=== PATIENT | male | born 1940 | race Caucasian/White ===

== ENCOUNTER 2022-05-06 16:01 | Outpatient (CLI) | payer MEDICARE, SELFPAY ==
[2022-05-06 14:04] LABS: Chloride* 103 mmol/L (96-114); Potassium* 3.8 mmol/L (3.6-5.1); Sodium* 137 mmol/L (135-149)
[2022-05-06 14:07] LABS: Blood Urea Nitrogen* 16 mg/dL (7-30); Carbon Dioxide* 23 mmol/L (20-32); Cholesterol* 175 mg/dL (90-199); Creatinine* 0.9 mg/dL (0.5-1.5); Estimated Glomerular Filt Rate 87 ml/min
[2022-05-06 14:08] LABS: Calcium* 9.3 mg/dL (8.4-10.6); Glucose* 103 mg/dL (60-115); HDL Cholesterol* 60 mg/dL (>=40); LDL Cholesterol Calculated 86 mg/dL (<100); Triglycerides* 145 mg/dL (40-149)
[2022-05-06 14:30] LABS: PSA Screen* 1.15 ng/mL (0.10-4.00)
== END 2022-05-06 16:02 | disposition home or self-care (01) ==
PROVIDERS: PCP Family Medicine; Visit Provider Family Medicine
DX: Z00.00 Encounter for general adult medical examination without abnormal findings (principal); E78.00 Pure hypercholesterolemia, unspecified; E78.5 Hyperlipidemia, unspecified; I10 Essential (primary) hypertension; Z12.5 Encounter for screening for malignant neoplasm of prostate
CPT/HCPCS: 80048; 80061; 84153

== ENCOUNTER 2022-05-20 10:41 | Outpatient (CLI) | payer MEDICARE, SELFPAY | END 2022-05-20 10:42 | disposition home or self-care (01) | LOC: INJ CL 10:41 | PROVIDERS: PCP Family Medicine; Visit Provider Family Medicine | DX: M54.16 Radiculopathy, lumbar region (principal); M51.36 Other intervertebral disc degeneration, lumbar region | CPT/HCPCS: 62323; J0702; Q9966 ==

== ENCOUNTER 2022-09-23 08:56 | Outpatient (CLI) | payer MEDICARE, SELFPAY | END 2022-09-23 08:57 | disposition home or self-care (01) | LOC: INJ CL 09:10 | PROVIDERS: PCP Family Medicine; Visit Provider Family Medicine | DX: M54.16 Radiculopathy, lumbar region (principal); M51.36 Other intervertebral disc degeneration, lumbar region | CPT/HCPCS: 62323; J0702; Q9966 ==

== ENCOUNTER 2022-10-28 09:17 | Outpatient (CLI) | payer OTHER, SELFPAY | END 2022-10-28 09:18 | disposition home or self-care (01) | LOC: INJ CL 09:18 | PROVIDERS: PCP Family Medicine; Visit Provider Family Medicine | DX: M54.16 Radiculopathy, lumbar region (principal); M51.36 Other intervertebral disc degeneration, lumbar region | CPT/HCPCS: 62323; J0702; Q9966 ==

== ENCOUNTER 2022-11-04 08:52 | Outpatient (CLI) | payer OTHER, SELFPAY | END 2022-11-04 08:53 | disposition home or self-care (01) | LOC: NFLDREF 11-05 22:26 | PROVIDERS: PCP Family Medicine; Referring Provider Family Medicine; Visit Provider Family Medicine | DX: D64.9 Anemia, unspecified (principal) | CPT/HCPCS: 82728; 83540; 83550 ==

== ENCOUNTER 2023-02-24 08:06 | Outpatient (RCR) | payer OTHER, SELFPAY ==
[2023-02-24] MEDS: REGADENOSON 0.4 MG/5 ML SYRINGE IVP (09:05)
[2023-02-24] MEDS: SODIUM CHLORIDE 0.9 % (FLUSH) 10 ML SYRINGE IVF (09:05)
[2023-02-24 10:28] VITALS: BP 158/72; PULSE 89
--- NOTE | 2023-02-24 11:00 | W.PM.STED ---
Stress Test Note Date Date Seen: 02/24/23 Date of test: 02/24/23 Providers Primary care provider: Rg Collins Stress test physician: Donna Garza Stress Test Note Stress test ordered: Lexiscamadou Indication for test: Dyspnea, history of stents with ASCVD Stress test medicine: Lexiscan Results discussion: Resting EKG: Sinus rhythm 60 beats per minute, some artifact. Low voltage AVF, flipped T-wave [address] segment changes. Resting blood pressure: 158/91 Stress test: Patient had a nonwalking Lexiscan protocol. With the regadenoson infusion, felt lightheaded but no chest pain. He had no concerning blood pressure changes, did have a maximal systolic blood pressure 158/72. No concerning EKG changes during the stress test. Await the imaging test results for full formal diagnostic. Impression: Subjectively negative, objectively negative EKG portion of this stress test. Follow up suggested: Patient will have post stressed nuclear images obtained, will discharge to home after that to await a full formal report which will be sent to his ordering provider.
== END 2023-03-05 23:59 | disposition home or self-care (01) ==
LOC: STRESS 08:06
PROVIDERS: PCP Family Medicine; Visit Provider Family Medicine
DX: R06.09 Other forms of dyspnea (principal); I47.1 Supraventricular tachycardia; I25.10 Atherosclerotic heart disease of native coronary artery without angina pectoris
CPT/HCPCS: 78452; 93016; 93017; A9500; J2785

== ENCOUNTER 2023-05-07 08:13 | Outpatient (CLI) | payer OTHER, SELFPAY | END 2023-05-07 08:14 | disposition home or self-care (01) | LOC: NFLDREF 05-08 08:44 | PROVIDERS: PCP Family Medicine; Referring Provider Family Medicine; Visit Provider Family Medicine | DX: E78.5 Hyperlipidemia, unspecified (principal); I10 Essential (primary) hypertension; I25.10 Atherosclerotic heart disease of native coronary artery without angina pectoris; D64.9 Anemia, unspecified; R30.0 Dysuria; Z12.5 Encounter for screening for malignant neoplasm of prostate | CPT/HCPCS: 80053; 80061; 84153; 87086; 87186 ==

== ENCOUNTER 2023-05-19 08:41 | Outpatient (CLI) | payer OTHER, SELFPAY | END 2023-05-19 08:42 | disposition home or self-care (01) | LOC: INJ CL 08:43 | PROVIDERS: PCP Family Medicine; Visit Provider Family Medicine | DX: M54.16 Radiculopathy, lumbar region (principal); M51.36 Other intervertebral disc degeneration, lumbar region | CPT/HCPCS: 62323; J1100; Q9966 ==

== ENCOUNTER 2023-06-02 08:16 | Outpatient (CLI) | payer OTHER, SELFPAY | END 2023-06-02 08:17 | disposition home or self-care (01) | LOC: NFLDREF 06-04 15:56 | PROVIDERS: PCP Family Medicine; Referring Provider Family Medicine; Visit Provider Family Medicine | DX: D64.9 Anemia, unspecified (principal); N39.0 Urinary tract infection, site not specified; R31.9 Hematuria, unspecified | CPT/HCPCS: 82728; 83540; 87086; 87186 ==

== ENCOUNTER 2023-06-11 08:14 | Outpatient (CLI) | payer MEDICARE, SELFPAY ==
[2023-06-11 08:47] LABS: Creatinine* 0.9 mg/dL (0.5-1.5); Estimated Glomerular Filt Rate 86 ml/min
--- NOTE | 2023-06-11 09:00 | CRLHL7_ITS ---
For Patients: As a result of the Century Cures Act, medical imaging exams and procedure reports are released immediately into your electronic medical record. You may view this report before your referring provider. If you have questions, please contact your health care provider. INDICATION: Hematuria. TECHNIQUE: CT abdomen and pelvis urogram without and with 100 cc Isovue 370 IV contrast. Contrast images were obtained in the nephrographic and delayed phases. COMPARISON: None. FINDINGS: KIDNEYS: The unenhanced images demonstrate no kidney or ureteral stones. The kidneys are normal in caliber and demonstrate normal uptake and excretion of IV contrast. No masses. The renal collecting systems and ureters are symmetrical, normal in caliber, and without evidence of mass or filling defect. URINARY BLADDER: There is a lobular filling defect arising from the superior bladder wall measuring 9 millimeters, series 8, image 83 and series 7, image 106. OTHER: Chronic nondisplaced bilateral sacral insufficiency fractures noted. Bilateral pars defects at L5 without spondylolisthesis. Chronic appearing deformity involving the inferior endplate of L2. Mild scarring within the left lung base. No pleural effusion. Dense calcification of the mitral annulus. Layering stones within the gallbladder. No biliary obstruction. Fatty liver. Normal pancreas. Spleen normal. No hiatal hernia. Severe sigmoid diverticulosis. No bowel obstruction. No free air or free fluid. No abscess. Atherosclerotic changes. Small umbilical hernia containing fat. No aortic aneurysm. Prostate calcifications. IMPRESSION: 1. Normal kidneys and ureters. 2. Lobular 5th filling defect arising from the superior bladder wall measuring 9 millimeters suspicious for mass. Cystoscopy recommended. 3. Cholelithiasis. Severe sigmoid diverticulosis. Please note that all CT scans at this facility use dose modulation, iterative reconstruction, and/or weight-based dosing when appropriate to reduce radiation dose to as low as reasonably achievable. Dictated by Maxwell Gil MD @ 06/11/2023 1:00:17 PM (Electronically Signed)
== END 2023-06-11 08:15 | disposition home or self-care (01) ==
LOC: CT 08:15
PROVIDERS: PCP Family Medicine; Visit Provider Family Medicine
DX: R31.9 Hematuria, unspecified (principal); K80.20 Calculus of gallbladder without cholecystitis without obstruction
CPT/HCPCS: 36415; 74178; 82565; Q9967

== ENCOUNTER 2023-07-30 09:26 | Outpatient (CLI) | payer MEDICARE, SELFPAY ==
--- OUTSIDE RECORDS SUMMARY | 2023-07-30 09:28 | XMS_ITS | Continuity of Care Document ---
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 Role Phone Melvin BERNAL, PhD, Gil[place] Unavailable Unavai lable Allergies, Adverse Reactions, Alerts Substance Reaction Status Criticality No Known Allergies Active No Inform ation Medications Medication Instructions Dosage Effective Dates (start - stop) Status Comments HYDROCHLOROTHIAZIDE (unknown strength) Not Available - Active ASPIRIN (unknown strength) Not Available - Active ATORVASTATIN CALCIUM (unknown strength) Not Available - Active CALCIUM (unknown strength) Not Available - Active CO Q-10 (unknown strength) Not Available - Active MAGNESIUM (unknown strength) Not Available - Active METOPROLOL SUCCINATE (unknown strength) Not Available - Active MONTELUKAST SODIUM (unknown strength) Not Available - Active MULTIVITAMINS (unknown strength) Not Available - Active NITROGLYCERIN PATCH (unknown strength) Not Available - Active OMEPRAZOLE (unknown strength) Not Available - Active NASACORT (unknown strength) Not Available - Active Procedures Procedure Date Physician Telephone Evaluation 5-10 Min Physician Telephone Evaluation 5-10 Min Office/Outpatient Visit,Est, Mod 2019 Office/Outpatient Visit,New, Mod 2019 Advance Directives Directive Yes / No Effective Date File Name No Information Encounters Encounter Description Practice Location Reason(s) For Visit Diagnoses Date Provider Providers Copied on Encounter [facility], [address], [facility] [place], [id number], tel:[phone] [facility] No Information 1 Melvin Schafer. [facility], [address], [place], [address], [place]. tel:[phone] Physician Telephone Evaluation 5-10 Min [facility], [address], [place], [id number], [place] tel:[phone] [facility] No Information 1 Melvin Schafer. [facility], [address], [place], [address], [place]. tel:[phone] Referring Provider: Rg Hess, [facility] [address] [place], [address]. tel:[phone] Physician Telephone Evaluation 5-10 Min [facility], [address], [facility] [place] [id number], [place] tel:[phone] [facility] No Information 1 Melvin Schafer. [facility], [address], [place], [address], [place]. tel:[phone] Referring Provider: Rg Hess, [facility] [address] [place], [address]. tel:[phone] Office/Outpat ient Visit,Est, Mod [facility], [address], [place], [place], [id number], [place] tel:[phone] [facility] Spinal stenosis, lumbar region with neurogenic claudication 0 Melvin Schafer. [facility], [address], [place], [address], [place]. tel:[phone] Referring Provider: Rg Hess, [facility] [address] [place], [address]. tel:[phone] Office/Outpat ient Visit,New, Mod [facility], [address], [place], [place], [id number], [place] tel:[phone] [facility] Spondylolisthe sis, lumbar regionOther spondylosis, lumbar region 0 Nick Louis. [facility], [address], [place], [place], [id number] , [place]. tel:[phone] Referring Provider: Rg Hess, [address], [address]. tel:[phone] Family History Family Member Type Diagnosis Age At Onset No Information Payers Payer name Insurance type Covered constitution party ID Authoriza tion(s) [employer] Medicare [facility] CI [id number] Social History Type Description Quantity Date Captured Comments Sex Male Smoking Status No Information Chief Complaint And Reason For Visit No Information Reason For Referral Reason For Referral No Information History Of Present Illness Encounter Date Complaint History Of Prese nt Illness No Information Functional Status Date Functional Assessmen t No Information Instructions Date Instruction Additional Infor mation No Information Assessments Type Assessment Date No Information Patient Care Teams Name Effective Dates (start - stop) Status Members No Information
--- NOTE | 2023-07-30 10:00 | CRLHL7_ITS ---
For Patients: As a result of the Century Cures Act, medical imaging exams and procedure reports are released immediately into your electronic medical record. You may view this report before your referring provider. If you have questions, please contact your health care provider. INDICATION: Gross hematuria TECHNIQUE: CT abdomen and pelvis urogram without and with 100 cc Isovue 370 IV contrast. Contrast images were obtained in the nephrographic and delayed phases. COMPARISON: 06/11/2023 FINDINGS: KIDNEYS: The unenhanced images demonstrate no kidney or ureteral stones. The kidneys are normal in caliber and demonstrate normal uptake and excretion of IV contrast. No masses. The renal collecting systems and ureters are symmetrical, normal in caliber, and without evidence of mass or filling defect. URINARY BLADDER: Lobular mass within the bladder superiorly measuring 1.4 cm. OTHER: Linear subsegmental atelectasis or scarring within the left lower lobe. Stable densities within the sacrum bilaterally related to old nondisplaced fracture. Pars defects at L5 without spondylolisthesis. Chronic densities within the L2 vertebral bodies. No vertebral body compression fracture. Chronic sigmoid diverticulosis. Layering densities within the gallbladder. Atherosclerotic changes. Normal pancreas. Spleen normal. Fatty liver. IMPRESSION: 1. Lobular bladder mass measuring 1.4 cm arising from the superior wall. Cystoscopy recommended. 2. Normal kidneys. 3. Cholelithiasis. Please note that all CT scans at this facility use dose modulation, iterative reconstruction, and/or weight-based dosing when appropriate to reduce radiation dose to as low as reasonably achievable. Dictated by Maxwell Gil MD @ 07/30/2023 12:09:00 PM (Electronically Signed)
[2023-07-30 10:01] LABS: Estimated Glomerular Filt Rate 76 ml/min
== END 2023-07-30 09:27 | disposition home or self-care (01) ==
LOC: CT 09:26
PROVIDERS: PCP Family Medicine; Visit Provider Urology
DX: R31.0 Gross hematuria (principal); N32.9 Bladder disorder, unspecified; K80.20 Calculus of gallbladder without cholecystitis without obstruction
CPT/HCPCS: 36415; 74178; 82565; Q9967

== ENCOUNTER 2023-10-13 09:09 | Outpatient (CLI) | payer MEDICARE, SELFPAY | END 2023-10-13 09:10 | disposition home or self-care (01) | LOC: INJ CL 09:09 | PROVIDERS: PCP Family Medicine; Visit Provider Family Medicine | DX: M54.16 Radiculopathy, lumbar region (principal); M51.36 Other intervertebral disc degeneration, lumbar region | CPT/HCPCS: 62323; J0702; Q9966 ==

== ENCOUNTER 2024-01-05 07:39 | Outpatient (CLI) | payer OTHER, SELFPAY ==
--- OUTSIDE RECORDS SUMMARY | 2024-01-05 07:41 | XMS_ITS | Clinical Summary ---
Author Name Unknown Organization [facility] Address [place], [place] [address] Care Team Providers Care Tabulating Clerk Name Role Phone Rg Collins MD Primary Care Provider [phone] Allergies No known active allergies Medications Medication Sig Dispensed Refills Start Date End Date Status omeprazole (PRILOSEC) 20 mg capsule Take 20 mg by mouth once daily before a meal. Pt states does not take Active hydrochlorothiazid e (HCTZ) 25 mg tablet Take 25 mg by mouth once daily. Active simvastatin (ZOCOR) 40 mg tablet Take 40 mg by mouth at bedtime. Pt states he does not take this Active coQ10, ubiquinol, 100 mg cap Take 1 capsule by mouth once daily. Active aspirin 81 mg tablet Take 81 mg by mouth 2 times daily with meals. Active multivitamin (MVI) tablet Take 1 tablet by mouth once daily. Active montelukast (SINGULAIR) 10 mg tablet Take 10 mg by mouth at bedtime. Active metoprolol succinate 25 mg CSpX Take 25 mg by mouth two times daily. Active TRIAMCINOLONE ACETONIDE NASL Inhale into affected nostril(s) once daily if needed. Active magnesium oxide 250 mg magnesium tablet Take 250 mg by mouth once daily. Active HYDROcodone-acetam inophen (5-325 mg/tablet)Indicati ons:Bladder mass Take 1 Tablet by mouth every 6 hours if needed for Pain. Max acetaminophen dose: 4000 mg in 24 hrs. 12 Tablet 09/08/2023 Active Active Problems No known active problems Encounters Date Type Department Care Team Description 12/22/2023 Telephone [facility] [address] [place] [address] Dylan Graves MD LUMBAR INJECTION ORDER 11/11/2023 3:20 PM CDT Office Visit [facility] [address] [facility] [place] [address] Dylan Graves MD Musculoskeletal Problem (Follow up back pain had a L5-S1 interlaminar epidural steroid injection on 10/13/23) 11/11/2023 Travel 11/05/2023 Telephone [facility] [address] [facility] [place] [address] Dylan Graves MD Questions (INJECTION ) 10/13/2023 10:00 AM SHIPPING AGENT Office Visit [facility] at [address] [phone] Dylan Graves MD Procedure (L5-S1 ILESI) from Last 3 Months Immunizations Name Administration Dates Next Due Influenza A (H1N1), Inactiva lakeshia (Age >=3 Years) 06/29/2009 Influenza, High-dose Inactivated 04/07/2017 Influenza, IIV4 06/21/2020,06/09/2019,06/29/2009 Pneumococcal Poly,23-Valent (Pneumovax) 12/01/2012,12/01/2012,05/22/2008 Pneumococcal conj 13-Valent (Prevnar 13) 04/26/2015 Td, Preservative Free (age > = 7 Years) 12/14/2017,12/14/2017,05/22/2008 Tdap 05/22/2008 Zoster (Shingrix-RZV, recombinant) 10/29,10/27/2018,08/13/2018,2017 Zoster (Zostavax-ZVL, live) 12/01/2012 Social History Tobacco Use Types Packs/Day Years Used Date Smoking Tobacco: Former Smokeless Tobacco: Never Alcohol Use Standard Drinks/Week Comments Yes 0 (1 standard drink = 0.6 oz pur e alcohol) socially Social Connections Answer Date Recorded Frequency of Communication with Friends and Fami ly Not on file 08/15/2021 Financial Resource Strain Answer Date R ecorded Difficulty of Paying Living Expenses Not on file 08/15/2021 Difficulty of Paying Living Expenses Not on file 08/15/2021 Sex and Gender Information Value Date Recorded Sex Assigned at Not on file Gender Identity Not on file Sexual Orientation Not on file Obstetrics History Last Filed Vital Signs Vital Sign Reading Time Taken Comments Blood Pressure 107/69 11/11/2023 3:23 PM CDT Pulse 69 11/11/2023 3:23 PM CDT Temperature 36.8 ??C (98.2 ??F) 11/11/2023 3:23 PM CD T Respiratory Rate 16 09/08/2023 2:05 PM SHIPPING AGENT Oxygen Saturation 97% 11/11/2023 3:23 PM CDT Inhaled Oxygen Concentration - - Weight 111.6 kg (246 lb) 09/08/2023 11:00 AM SHIPPING AGENT Height 172.7 cm (5' 8) 09/08/2023 11:00 AM SHIPPING AGENT Body Mass Index 37.4 09/08/2023 11:00 AM SHIPPING AGENT Plan of Treatment Upcoming Encounters Date Type Department Care Team (Late st Contact Info) Description 01/05/2024 8:20 AM CDT Office Visit [facility] at [facility] [address] [place] [address] Dylan Graves MD [address] [place] [address] Health Maintenance Due Date Last Done Comments Depression screening for age 12+ 1954 BMI (ht and wt on same day) for age 18+ 1960 Medicare Wellness for age 65+ 2007 COVID-19 vaccine series ( season) 2023 05/06/2022, 11/13/2021, 05/13/2021, Additional history exists Influenza for age 65+ 04/17/2024 06/21/2020 , 06/09/2019, 04/07/2017, Additional history exists Tetanus booster 12/15/2027 12/14/2017, 11/17, 05/22/2008, Additional history exists Tdap Completed 05/22/2008 Pneumococcal series for age 65+ Completed 04/26/2015, 12/01/2012, 12/01/2012, Additional history exists Zoster (shingles) series for age 50+ Completed 10/29/2018, 10/27/2018, 08/13/2018, Additional history exists Procedures Procedure Name Priority Date/Time Associated Diagnosis Comments AMB EPIDURAL STEROID INJECTION Routine 10/13/2023 12:00 AM SHIPPING AGENT Lumbar radiculopathy Spinal stenosis, lumbar region, with neurogenic claudication from Last 3 Months Results * AMB EPIDURAL STEROID INJECTION (10/13/2023 12:00 AM SHIPPING AGENT) Dylan Graves MD NEUROLOGY ORD from Last 3 Months Advance Directives * Full Code (Latest Code Status on File) Date Activated Date Inactivated Comments 09/08/2023 8:50 AM 09/08/2023 6:23 PM Question Answer Comments Code Status Discussion: Unable to Assess Preferences, Provider to review later * Full Code Date Activated Date Inactivated Comments 05/13/2012 6:28 AM 05/13/2012 12:33 PM Care Teams Tabulating Clerk Relationship Specialty Start Date End Date Rg Collins MD [address], [place] [address] PCP - General Family Practice 07/24/20
--- OUTSIDE RECORDS SUMMARY | 2024-01-05 07:41 | XMS_ITS | Continuity of Care Document ---
Author Name Unknown Organization [facility] Address [address] [place] [address] Phone Care Team Providers Care Graphic Technician Name Role Phone Melvin BERNAL, PhD, [place] [...] Copied on Encounter [facility], [address], [facility] [place], [id number], tel:[phone] [facility] No Information 1 Melvin Schafer. [facility], [address], [place], [address], [place]. tel:[phone] Physician Telephone Evaluation 5-10 Min [facility], [address], [place], [place], [id number], [place] tel:[phone] [facility] No Information 1 Melvin Schafer. [facility], [address], [place], [address], [place]. tel:[phone] Referring Provider: Rg Hess, [facility] [address] [place], [address]. tel:[phone] Physician Telephone Evaluation 5-10 Min [facility], [address], [facility] [id number], [place] tel:[phone] [facility] No Information 1 Melvin Schafer. [facility], [address], [place], [address], [place]. tel:[phone] Referring Provider: Rg Hess, [facility] [address] [place], [address]. tel:[phone] Office/Outpat ient Visit,Est, Mod [facility], [address], [place], [id number], [place] tel:[phone] [facility] Spinal stenosis, lumbar region with neurogenic claudication 0 Melvin Schafer. [facility], [address], [place], [id number], [place]. tel:[phone] Referring Provider: Rg Hess, [facility] [address] [place], [address]. tel:[phone] Office/Outpat ient Visit,New, Mod [facility], [address], [place], [place], [id number], [place] tel:[phone] [facility] Spondylolisthe sis, lumbar regionOther spondylosis, lumbar region 0 Nick Louis. [facility], [address], [place], [place], [id number] , [place]. tel:[phone] Referring Provider: Rg Hess, [address], [address]. tel:[phone] Family History Family Member Type Diagnosis Age At Onset No Information Payers Payer name Insurance type Covered alliance party ID Authoriza tion(s) [employer] Medicare [facility] CI [id number] Social History Type Description Quantity Date Captured [...]
--- OUTSIDE RECORDS SUMMARY | 2024-01-05 07:41 | XMS_ITS | Encounter Summary ---
Author Name Unknown Organization [place] Address [facility] [place] [address] Care Team Providers Care Export Specialist Name Role Phone Manuel Hare Primary Care Provider [phone] Rohit Lechuga MD Unavailable [phone] Rohit Lechuga MD Unavailable [phone] Rohit Lechuga MD Unavailable [phone] Nelli Amaya APRN [facility] Unavailable [phone] Rg Collins MD Primary Care Provider [phone] Xavier Kwan MD Unavailable [phone] Encounter Details Date Type Department Care Team (Late st Contact Info) Description 11/10/2012 Office Visit-[facility] [address] [place] [address] Rohit Lechuga MD [address] [facility] [address] [place] [address] Social History Tobacco Use Types Packs/Day Years Used Date Smoking Tobacco: Never Assessed Sex and Gender Information Value Date Recorded Sex Assigned at Not on file Gender Identity Not on file Sexual Orientation Not on file documented as of this encounter Progress Notes * Rohit Lechuga MD - 11/10/2012 10:10 AM CDT November 09, 2012 Manuel Benton M.D. RE:Maxwell Redmond :44 Maxwell Redmond, a 72-year-old man, was evaluated in consultation at your request for exertional chest discomfort and an abnormal stress echocardiogram. For the last one week, Mr. Redmond has noted exercise associated left chest pressure that radiates to the left shoulder. This discomfort is readily precipitated by exercise, but is rapidly relievedby rest. Specifically, the patient has had no episodes of discomfort awakening him from sleep or occurring at rest. He was seen at your office, and you called my colleague (Dr. Storey). Dr. Storey recommended a stress echocardiogram. In the meantime, Dr. Storey recommended metoprolol 25 mg b.i.d in addition to thepatient's aspirin and atorvastatin therapy. The patient exercised for about 21/2 minutes on a Addy protocol and was stopped because of exertional angina. He did not develop EKG changes, but his echo demonstrated hypokinesis in the distribution of the mid LAD. The patient's symptoms resolved rapidly after stopping the treadmill test. PAST MEDICAL HISTORY: 1. Hypertension. 2. Dyslipidemia. 3. Obesity. 4. Obstructive sleep apnea. He uses a CPAP machine. 5. Right knee osteoarthritis, status post knee surgery. 6. Chronic low back pain. 7. History of left shoulder arthroscopic decompression with open cuff repair in . 8. Status post right eye surgery. ALLERGIES: None known. The patient took nitroglycerin with an adverse reaction about 25 years ago. SOCIAL HISTORY: The patient is single. He is . 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 He has two children. He has horses and enjoys horses and dancing. REVIEW OF SYSTEMS: General: There has been no fever, night sweats, or weight change. Eyes: No visual complaints. Ears: Normal. Mouth: No throat problems. Lungs: There has been no cough, wheezing, or hemoptysis. : There has been no dysuria. GI: There have been no black tarry stools, vomiting of blood, or abdominal pain. The patient reports an old history of gastroesophageal reflux disease, which has been stable. MEDICATIONS: 1. Omeprazole 20 mg daily. 2. Hydrochlorothiazide 25 mg daily. 3. Aspirin 81 mg daily. 4. Atorvastatin 20 mg daily. 5. Metoprolol 25 mg b.i.d. This has been just started. Exam demonstrates a very pleasant and cooperative 72-year-old man who is overweight. His blood pressure was 154/80. His heart rate was 84 at rest. His lungs were clear to percussion and auscultation.His cardiovascular exam revealed a normal S1 and S2. There was a soft S4. There was no S3. There was no murmur, rub, or click. His pulses were full and symmetric in the carotid, radial brachial, femoral, popliteal, dorsalis pedis, and posterior tibials. He has a good right radial and ulnar pulse. Abdomen exam: Obesity is present. Liver percusses to about 8 cm. Neurologic: Cranial nerves II through XII were intact. His strength was symmetric and equal. He displays normal insight and judgment. LABORATORY STUDIES: His ECG at rest showed a sinus rhythm with a left anterior fascicular block. There is somewhat poor R wave progression. His stress echocardiogram is in the above text. The patient showed only poor exercise tolerance with angina occurring at low levels of activity. ASSESSMENT: This 72-year-old man with a history of hypertension and dyslipidemia presents with a one week history of exertional angina. His stress echo demonstrated ischemia in the anterior wall consistent with an LAD stenosis. He has been placed on appropriate medical therapy by Dr. Hare including aspirin, beta-pk, and statin therapy. I would advise coronary angiography to decide whether the patient would benefit from mechanical revascularization. We have advised the patient to avoid any activities that might cause angina between now and the time of his angiogram. I have advised him to go directly to the ER by ambulance should his symptom pattern worsen or should he experience any angina at rest. I have explained to the patient the risks associated with coronary angiography, LHC, LV and possible percutaneous intervention including , myocardial infarction, stroke, hematoma, bleeding, infection, embolus, arrhythmias, stent thrombosis, risk of peripheral vascular complications, possible need for urgent bypass surgery for failed PCI, and need for ocean transportation intermediary thienopyridine therapy should we implant a stent. I will plan a radial approach, but he understands if not technically feasible, a femoral approach may be needed He voiced understanding of the risks and benefits of the proposed procedures and wishes to proceed. RECOMMENDATIONS: 1. Aspirin at least 81 mg a day. 2. Metoprolol 25 mg b.i.d. 3. Atorvastatin to maintain an LDL cholesterol less than 70. 4. Mediterranean style diet. 5. Continue with his CPAP machine. 6. Diagnostic left heart catheterization, left ventriculogram, coronary angiography, and possible mechanical intervention via the right radial artery, scheduled for 11/11/2012 at [facility]. We greatly appreciate the opportunity to care for your patient, Mr. Maxwell Redmond. Rohit Lechuga M.D. documented in this encounter Plan of Treatment Not on file documented as of this encounter Visit Diagnoses Not on filedocumented in this encounter Care Teams Export Specialist Relationship Specialty Start Date End Date Manuel Hare [address] [address] PCP - General 11/09/12 12/30/21 Rg Collins MD [address] [place] [address] PCP - General Family Medicine 12/31/21 Rohit Lechuga MD [address] [place] [address] Cardiology 03/26/18 Rohit Lechuga MD [address] [place] [address] Assigned Heart and Vascular Provider 06/08/20 10/06/20 Rohit Lechuga MD [address] [place] [address] Assigned Heart and Vascular Provider 05/12/21 12/07/21 Nelli Amaya APRN CNP [address] [place] [id number] Assigned Heart and Vascular Provider 12/08/21 01/04/22 Xavier Kwan MD [address] [facility] [address] [place] [id number] Assigned Heart and Vascular Provider 01/05/22 05/01/23 documented as of this encounter
--- OUTSIDE RECORDS SUMMARY | 2024-01-05 07:41 | XMS_ITS | Referral Summary ---
Author Name Unknown Organization [place] Address [facility] [place] [address] Care Team Providers Care Student Success Coach Name Role Phone Rohit Lechuga MD Unavailable [phone] Rg Collins MD Primary Care Provider [phone] Allergies No known active allergies Medications Medication Sig Dispensed Refills Start Date End Date Status OMEPRAZOLE PO Take 40 mg by mouth 2 times daily Active HYDROCHLOROTHIAZID E PO Take 25 mg by mouth daily. Active ATORVASTATIN CALCIUM PO Take 20 mg by mouth At Bedtime Active aspirin 81 MG EC tabletIndications: CAD (coronary artery disease) Take 1 tablet by mouth daily. Start tomorrow morning. 90 tablet 3 11/18/2012 Active Additional Information Patient taking differently:81 mg Oral DAILY,(No instructions reported), Reported on 12/03/2021 metoprolol (TOPROL-XL) 25 MG 24 hr tablet Take 25 mg by mouth daily Active Coenzyme Q10 (COQ-10) 100 MG CAPS Take 100 mg by mouth daily Active Multiple Vitamins-Minerals (CENTRUM SILVER ULTRA MENS PO) Take by mouth daily A ctive magnesium 250 MG tablet Take 1 tablet by mouth daily Active Calcium Carbonate-Vit D-Min (CALCIUM-VITAMIN D-MINERALS) 600-800 MG-UNIT CHEW Take by mouth daily Activ e triamcinolone (NASACORT) 55 MCG/ACT nasal aerosol Mason 2 sprays into both nostrils daily Active acetaminophen (TYLENOL) 500 MG tablet Take 500-1,000 mg by mouth every 8 hours as needed for mild pain Active Zinc 25 MG TABS Take 50 mg by mouth daily Active montelukast (SINGULAIR) 10 MG tablet Take 10 mg by mouth At Bedtime Active docusate sodium (COLACE) 100 MG tablet Take 100 mg by mouth 2 times daily Active Active Problems Problem Noted Date Diagnosed Date Hypertension 01/27/2014 Mixed hyperlipidemia (DYSLIPIDEMIA) 01/27/2014 Esophageal reflux (GERD) 01/27/2014 Osteoarthritis 01/27/2014 CAD (coronary artery disease) 01/27/2014 Overview: 10/2012-PTCA and overlapping ENRRIQUE in the mid LAD, proximal LAD, and first diagonal branch of the LAD. 11/2012-PTCA and ENRRIQUE to proximal and midsection of the large third obtuse marginal branch of the nondominant circumflex Sleep apnea Social History Tobacco Use Types Packs/Day Years Used Date Smoking Tobacco: Former Cigarettes Q uit: 1974 Smokeless Tobacco: Never Alcohol Use Standard Drinks/Week Comments Yes 0 (1 standard drink = 0.6 oz pure alcohol) 2 drinks every other day - some days more, some days less Adolescent Education Answer Date Record ed Getting School Help Needed Not on file 05/18 Sex and Gender Information Value Date Recorded Sex Assigned at Not on file Gender Identity Not on file Sexual Orientation Not on file Last Filed Vital Signs Vital Sign Reading Time Taken Comments Blood Pressure 123/75 12/31/2021 1:09 PM CDT Pulse 63 12/31/2021 1:09 PM CDT Temperature 37 ??C (98.6 ??F) 11/17/2012 8:3 2 AM CDT Respiratory Rate 8 11/17/2012 4:00 PM CDT Oxygen Saturation 97% 11/17/2012 3:0 0 PM CDT Inhaled Oxygen Concentration - - Weight 112.5 kg (248 lb) 12/31/2021 1:0 9 PM CDT reported home weight Height 172.7 cm (5' 8) 12/31/2021 1:09 PM CDT Body Mass Index 37.71 12/31/2021 1:09 PM CDT Plan of Treatment Not on file Procedures Procedure Name Priority Date/Time Associated Diagnosis Comments LIPID PROFILE Routine 02/01/2019 from Last 3 Months or Most Recently Relevant to Health Maintenance Results * Lipid Profile (02/01/2019) Cholesterol 179 90 - 200 mg/dL EXTERNAL LAB Triglycerides 138 40 - 197 mg/dL EXTERNAL LAB HDL Cholesterol 58 mg/dL EXTERNAL LAB LDL Cholesterol Calculated 93 <100 mg/dL EXTERNAL LAB Non HDL Cholesterol mg/dl EXTERNAL LAB Blood specimen (specimen) 02/01/2019 Patient Reported LAB - BLOOD ORDERABL ES EXTERNAL LAB External Lab from Last 3 Months or Most Recently Relevant to Health Maintenance Care Teams Student Success Coach Relationship Specialty Start Date End Date Rg Collins MD [address] [place] [id number] PCP - General Family Medicine 12/31/21 Rohit Lechuga MD [address] [place] [id number] Cardiology 03/26/18
--- OUTSIDE RECORDS SUMMARY | 2024-01-05 07:41 | XMS_ITS | Encounter Summary ---
Author Name Unknown Organization [place] Address [facility] [place] [address] Care Team Providers Care Hand Packer Name Role Phone Manuel Hare Primary Care Provider [phone] Rohit Lechuga MD Unavailable [phone] Rohit Lechuga MD Unavailable [phone] Rohit Lechuga MD Unavailable [phone] Nelli Amaya APRN [facility] Unavailable [phone] Rg Collins MD Primary Care Provider [phone] Xavier Kwan MD Unavailable [phone] Encounter Details Date Type Department Care Team (Late st Contact Info) Description 04/28/2013 Office Visit-[facility] [address] [place] [address] Rohit Lechuga MD [address] [facility] [address] [place] [address] Social History Tobacco Use Types Packs/Day Years Used Date Smoking Tobacco: Former Alcohol Use Standard Drinks/Week Comments Yes 0 (1 standard drink = 0.6 oz pur e alcohol) occasional Sex and Gender Information Value Date Recorded Sex Assigned at Not on file Gender Identity Not on file Sexual Orientation Not on file documented as of this encounter Progress Notes * Rohit Lechuga MD - 05/03/2013 9:01 AM CDT Progress Note Created by: Rohit Lechuga MD DATE: 04/28/2013 DWIGHT REDMOND DATE OF : 1940 AGE: [age] years old Referring Physician: MANUEL HARE Referring Clinic: [facility] CURRENT DIAGNOSES 1. - CAD, 414.00 2. - Hyperlipidemia, 272.4 3. Obesity-(<LT>100'), 278.00 4. - Hypertension, 401.1 5. Sleep apnea, 786.09 ALLERGIES nitroglycerin MEDICATIONS (prior to changes made today) 1. aspirin, buffered 81 mg tablet, 1 p.o. twice daily 2. atorvastatin 20 mg tablet, 1 p.o. daily hs 3. fluticasone 50 mcg/actuation [place], Suspension, 1 [place] each nostril twice daily 4. hydrochlorothiazide 25 mg tablet, 1 p.o. daily 5. loratadine 10 mg capsule, 1 p.o. PRN as Directed 6. metoprolol tartrate 25 mg tablet, 1 p.o. daily 7. nitroglycerin 0.4 mg tablet, sublingual, 1 Tab Sublingual - May Repeat Every 5 Minutes x2 For Chestpain 8. omeprazole 40 mg capsule,delayed release(DR/EC), 1 p.o. twice daily 9. Plavix 75 mg tablet, 1 p.o. daily CHIEF COMPLAINTS CAD exertional angina + stec sp ENRRIQUE in prox and mid LAD, D1 and M3, dyslipidemia, HTN, osesity and osteoarthritis HISTORY OF PRESENT ILLNESS Dwight Redmond, a 72-year-old man with coronary artery disease, hypertension, dyslipidemia, obesity, and osteoarthritis was seen today at your request for follow up. In October 2012, the patient developed exertional angina and had a positive stress echocardiogram. Diagnostic angiography demonstrated no significant narrowing in the dominant right coronary or the left main. There was a subtotal narrowing in the proximal LAD and an 80% lesion in the mid LAD. There was a focal tight narrowing in the first diagonal branch of the LAD. The nondominant circumflex had asevere long stenosis present in the proximal and mid segment of the third marginal branch. The patient underwent staged percutaneous intervention. Overlapping 3.5 mm x 20 mm and a 3.0 mm x 38 mm length everolimus eluting stents were placed in the proximal and mid LAD. A 2.25 mm x 16 mm length everolimus eluting stent was placed in the first diagonal branch of the LAD. Subsequently, overlapping 3.0 mm x 24 mm and 16 mm length everolimus eluting stents were placed in the proximal and mid segment of the third obtuse marginal branch. After intervention, there was no residual narrowing at any of the intervention sites with brisk CHARLIE 3 flow. Since I last saw the patient in December 2012, he remains entirely free of angina. He has resumed horseback riding and other moderate activities. His primary limiting problems at this time are osteoarthritis involving his right knee and right toe. He also complains of a cataract in his right eye that will eventually need surgery. PAST MEDICAL HISTORY: 1. Dyslipidemia. 2. Obesity. 3. Hypertension. 4. Osteoarthritis. 5. Gastroesophageal reflux disease. 6. Coronary artery disease. a. Exertional angina with a positive stress echo in October 2012. b. Status post implantation of an overlapping 3.5 mm x 20 mm and 3.0 mm x 38 mm length everolimus eluting stents in the proximal and mid LAD. Status post implantation of a 2.25 mm x 16 mm length everolimus eluting stent in the first diagonal branch. Status post implantation of overlapping 3.0 mm x 24 mm and 16 mm length everolimus eluting stents in the third marginal branch of the circumflex. He has had no angina since his intervention. Exam today demonstrates a very pleasant and cooperative 72-year-old man. He feels comfortable at rest. His blood pressure was 140/70. His heart rate was 66 and regular. His height was 68 inches. His weight was 252. His BMI was 38. His lungs were clear to percussion and auscultation. Cardiovascular exam reveals a normal S1 and S2. There was no S3. There was no murmur, rub, or click. PAST HISTORY Past Medical Illnesses: hypertension, dyslipidemia, obesity, SUSY, osteoarthritis, chronic low back pain Past Cardiac Illnesses: coronary artery disease Surgeries/Procedures - General: right eye surgery, rotator cuff surgery, knee surgery Cardiac/Vasc Procedures-Invasive: cardiac cath (left) 10/2012 - PTCA and ENRRIQUE, 11/2012 - PTCA and ENRRIQUE Cardiology Procedures-NonInvasive: stress echo 10/2012 Cardiac Cath Results: 10/2012 PTCA and 3.0 x 38mm ENRRIQUE to mid LAD, 3.5x20mm ENRRIQUE to prox LAD and 2.46k79un ENRRIQUE to 1st diagonal of LAD, 11/2012 PTCA and 3.0x24mm and 3.0x16mm ENRRIQUE to prox and mid section of 3rd OM branch of Cx PMHx Stress Echo Results: 10/2012 non diagnostic stress EKG, CP with exercise 12/24, stress induced wall motion abnormality c/wischemia in nito-septal and apical lateral wall in LAD territory Left Ventricular Ejection Fraction: 10/2012 EF 55-60% by stress echo LVEF of 55-60% documented via stress echo on 11/09/2012 FAMILY HISTORY: CARDIAC RISK FACTORS SOCIAL HISTORY Alcohol Use - drinks occasionally; Smoking - used to smoke but quit; Diet - low sodium (less than 2grams) and pt watching what he eats; Lifestyle - ; Exercise - dance, rides horses,cardiac rehab 2-3 days a week; Seat Belt Use - always; 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 INTEGUMENTARY denies any change in hair or nails, rashes, or skin lesions. EYES readers only, blurred vision EARS, NOSE, THROAT, MOUTH denies any hearing loss, epistaxis, hoarseness or difficulty speaking. RESPIRATORY denies dyspnea, cough, wheezing or hemoptysis. CARDIOVASCULAR negative for palpitations, chest pain, orthopnea, PND, peripheral edema, syncope or claudication. ABDOMINAL history of GERD MUSCULOSKELETAL arthritis of the both knee(s), big toe on right foot,fingers. NEUROLOGICAL denies any history of recurrent strokes, headaches, TIA, or seizure disorder. PSYCHIATRIC denies any history of depression, substance abuse or change in cognitive functions. ENDOCRINE denies any history of thyroid disease or diabetes mellitus. HEMATOLOGICAL/IMMUNOLOGIC denies any food allergies, seasonal allergies, bleeding disorders. PHYSICAL EXAMINATION VITAL SIGNS: Blood Pressure: 140/70Sitting, Left arm, large cuff Pulse- 66.00/min. Weight- 252.00 lbs. Height- 68.00 BMI Measurement: 38 CONSTITUTIONAL cooperative, alert and oriented,well developed, well nourished, in no acute distress. SKIN warm and dry to touch, no apparent skin lesions, or masses noted. HEAD normocephalic, atraumatic EYES Pupils equal and round, conjunctivae and lids unremarkable, sclera white, no xanthalasma ENT no pallor or cyanosis, dentition good NECK carotid pulses are full and equal bilaterally, JVP normal, no carotid bruit, no thyromegaly CHEST normal symmetry, no tenderness to palpation, normal respiratory excursion, no intercostal retraction, no use of accessory muscles, clear to auscultation and percussion. CARDIAC regular rhythm, S1 normal, S2 normal, No S3 or S4, Apical impulse not displaced, no murmurs, gallops or rubs detected. ABDOMEN abdomen soft, bowel sounds normoactive, no masses, no hepatosplenomegaly, non- tender, no bruits, moderately obese PERIPHERAL PULSES pulses full and equal in all extremities, no bruits auscultated. EXTREMITIES & BACK no deformities, clubbing, cyanosis, erythema or edema observed. There are no spinal abnormalities noted. Normal muscle strength and tone. NEUROLOGICAL no gross motor deficits noted, affect appropriate, oriented to time, person and place. MEDICATIONS UPDATED/STARTED TODAY: loratadine 10 mg capsule, 1 p.o. PRN as Directed, #0 (Zero) ASSESSMENT: Mr. Redmond has been asymptomatic since successful multivessel percutaneous intervention. His systolic blood pressure was borderline at this time, but I would not change his medical therapy. His LDL cholesterol has been optimal at 72. I explained to the patient that it is our preference that he remain on uninterrupted dual antiplatelet therapy with aspirin 81 mg a day and clopidogrel 75 mg a day for at least one year after his last intervention. After that time, he could stop his clopidogrel but should remain on aspirin indefinitely. If he feels that he will need either orthopedic or ophthalmologic procedures before those dates, I would like for his physician to contact me so that I can discuss the management of the potential risks involving holding the antiplatelet therapy. At present, the patient appears to be willing towait until the time period that the uninterrupted drug therapy has ended. I would advise a continued exercise program and weight loss. His blood pressure should be followed carefully. If it exceeds 140, I would advise that you consider adding lisinopril. RECOMMENDATIONS: 1. Continue present medical therapy including dual antiplatelet therapy. I have advise that he remains on both aspirin and clopidogrel through October 2013, stop clopidogrel at that time, and remain onaspirin 81 mg daily indefinitely after that time. 2. Weight loss. 3. Mediterranean style diet. 4. Follow up his systolic blood pressure with his primary care doctor. If his systolic blood pressure exceeds 140, I would add lisinopril. 5. Continue statin therapy and maintain an LDL of less than 70. 6. I have asked the patient to have his physician call me should any procedure be anticipated priorto October 2013. He will follow up with me in about six months. We greatly appreciate the opportunity to care for your patient, Mr. Dwight Redmond. TODAYS ORDERS 1. Return Visit 6 months Rohit Lechuga MD documented in this encounter Plan of Treatment Not on file documented as of this encounter Visit Diagnoses Not on filedocumented in this encounter Care Teams Hand Packer Relationship Specialty Start Date End Date Manuel Hare [address] [address] PCP - General 11/09/12 12/30/21 Rg Collins MD [address] [place] [address] PCP - General Family Medicine 12/31/21 Rohit Lechuga MD [address] [place] [address] Cardiology 03/26/18 Rohit Lechuga MD [address] [place] [address] Assigned Heart and Vascular Provider 06/08/20 10/06/20 Rohit Lechuga MD [address] [place] [address] Assigned Heart and Vascular Provider 05/12/21 12/07/21 Nelli Amaya APRN CNP [address] [place] [id number] Assigned Heart and Vascular Provider 12/08/21 01/04/22 Xavier Kwan MD [address] [place] [address] [place] [address] Assigned Heart and Vascular Provider 01/05/22 05/01/23 documented as of this encounter
--- OUTSIDE RECORDS SUMMARY | 2024-01-05 07:41 | XMS_ITS | Encounter Summary ---
Author Name Unknown Organization [place] Address [facility], [id number] [facility] [place] [address] Care Team Providers Care Campus Wellness Coordinator Name Role Phone Manuel Hare Primary Care Provider [phone] Rohit Lechuga MD Unavailable [phone] Rohit Lechuga MD Unavailable [phone] Rohit Lechuga MD Unavailable [phone] Nelli Amaya APRN [facility] Unavailable [phone] Rg Collins MD Primary Care Provider [phone] Xavier Kwan MD Unavailable [phone] Encounter Details Date Type Department Care Team (Late st Contact Info) Description 12/15/2012 Office Visit-[facility] [address] [place] [address] [place] [address] [place] [address] [address] [place] [address] Social History Tobacco Use Types [...] Progress Notes * Rohit Lechuga MD - 12/21/2012 2:33 PM CDT Progress Note Created by: Rohit Lechuga MD DATE: 12/15/2012 DWIGHT REDMOND DATE OF : 1940 AGE: [age] years old Referring Physician: MANUEL HARE Referring Clinic: [facility] CURRENT DIAGNOSES 1. - CAD, 414.00 2. - Hyperlipidemia, 272.4 3. Obesity-(<LT>100'), 278.00 4. - Hypertension, 401.1 5. Sleep apnea, 786.09 ALLERGIES nitroglycerin MEDICATIONS (prior to changes made today) 1. aspirin, buffered 81 mg tablet, 1 p.o. twice daily 2. atorvastatin 20 mg tablet, 1 p.o. daily hs 3. fluticasone 50 mcg/actuation [place], Suspension, 1 [place] each nostril twice daily 4. hydrochlorothiazide 25 mg tablet, 1 p.o. daily 5. metoprolol tartrate 25 mg tablet, 1 p.o. daily 6. nitroglycerin 0.4 mg tablet, sublingual, 1 Tab Sublingual - May Repeat Every 5 Minutes x2 For Chestpain 7. omeprazole 40 mg capsule,delayed release(DR/EC), 1 p.o. twice daily 8. Plavix 75 mg tablet, 1 p.o. daily CHIEF COMPLAINTS CAD sp PCI, dyslipidemia, f/u labs, hypertension and obesity HISTORY OF PRESENT ILLNESS Dwight Redmond, a 72-year-old man with coronary artery disease, hypertension, dyslipidemia, obesity and osteoarthritis, was seen today at your request for follow-up. In October of 2012, Mr. Redmond developed exertional angina. He underwent a stress echocardiogram that showed significant ischemia in the anterior and lateral wall. The resting ejection fraction was normal without regional wall motion abnormality. Diagnostic coronary angiography was performed on November 11, 2012. The left main had no significant narrowing. The left anterior descending had an eccentric subtotal narrowing in the proximal segment that began just after the takeoff of the first diagonal branch, but before the takeoff of the second diagonal branch. In the mid left anterior descendingthere was a long lesion that began at the takeoff of the second diagonal branch in the range of 75 to 80%. The first diagonal branch had a subtotal mid vessel narrowing. The circumflex was a nondominant vessel with a 95% narrowing involving the ostial and the mid segment of a large third marginal branch. The right coronary artery was dominant with no significant focal narrowing. Overlapping 3.5 x20 mm and 3 x 38 mm in length Everolimus eluting Promus stents were placed in the proximal and mid left anterior descending. A 2.25 x 16 mm in length Everolimus eluting Promus Element stent was placed in the first diagonal branch of the left anterior descending. After intervention there was no residual narrowing at any of the intervention sites. The patient returned on November 18, 2012, for staged intervention in the third marginal branch as although his angina had improved, he still experienced exertional angina despite his medications. The intervention sites in the proximal and mid left anterior descending, as well as the first diagonal branch remained widely patent with CHARLIE 3 flow and no residual narrowing. The patient underwent implantation of a 3 x 24 and 3 x 16 mm in length Everolimus eluting Promus Element stents in the proximal and mid section of the large third marginal branch at the site of the known lesions. After intervention there was no residual narrowing at either site with brisk CHARLIE 3 flow distally. Mr. Redmond has been entirely free of angina since his interventions. He is very satisfied with his markedly improved exercise tolerance. Presently, osteoarthritis involving both his large right toe and his knee are what limit his activities. He has tolerated atorvastatin. His LDL cholesterol came back at 72. PAST MEDICAL HISTORY: 1. Dyslipidemia. 2. Obesity. 3. Hypertension. 4. Osteoarthritis. 5. Coronary disease - status post implantation of Everolimus eluting stents in the proximal and midleft anterior descending and the first diagonal branch of the left anterior descending. Status postimplantation of 3 x 16 and 24 mm in length Everolimus eluting stent in the third obtuse marginal branch of the circumflex. EXAMINATION: A very pleasant and cheerful 72-year-old man who is overweight. His blood pressure is 112/70, his heart rate is 68. His lungs are clear to auscultation and percussion. Cardiovascular examination shows a normal S1 with a normal S2, there is no S3, there is no murmur, rub or click. LABORATORY STUDIES: His LDL cholesterol is 72. 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 INTEGUMENTARY denies any change in hair or nails, rashes, or skin lesions. EYES readers only, blurred vision EARS, NOSE, THROAT, MOUTH denies any hearing loss, epistaxis, hoarseness or difficulty speaking. RESPIRATORY denies dyspnea, cough, wheezing or hemoptysis. CARDIOVASCULAR pt has 5 stents,has acid reflux ABDOMINAL history of GERD MUSCULOSKELETAL arthritis of [...] disorders. PHYSICAL EXAMINATION VITAL SIGNS: Blood Pressure: 112/70Sitting, Left arm, large cuff Pulse- 68.00/min. Weight- 268.00 lbs. Height- 68 BMI Measurement: 40 CONSTITUTIONAL cooperative, alert and oriented,well developed, well [...] time, person and place. MEDICATIONS UPDATED/STARTED TODAY: fluticasone 50 mcg/actuation [place], Suspension, 1 [place] each nostril twice daily, #0 (Zero) metoprolol tartrate 25 mg tablet, 1 p.o. daily, #0 (Zero) omeprazole 40 mg capsule,delayed release(DR/EC), 1 p.o. twice daily, #0 (Zero) MEDICATIONS REFILLED/STOPPED TODAY: metoprolol tartrate 25 mg tablet 1 p.o. twice daily #1 (Not Dispensing) Dosage Decreased, omeprazole 40 mg capsule and elayed release(DR/EC) 1 p.o. daily #1 (Not Dispensing) Dosage Increased IMPRESSIONS/PLAN Mr. Garcia had had a very gratifying response to percutaneous intervention for management of disabling angina. His systolic blood pressure is optimal. His LDL cholesterol level is optimal. It would be preferable to avoid any intervention for his osteoarthritis for as long as possible. If his Orthopedic doctors are able to perform injections without stopping his antiplatelet therapy that wouldbe the safest course of treatment. I see no reason why his toe could not be injected if the Orthopedic doctors are comfortable with maintaining his antiplatelet therapy. The second best option is to perform the procedures while the patient is on aspirin and not on his Plavix. If this option is chosen, his Plavix should be resumed as soon as acceptable to the Orthopedic doctors after the injections are completed. RECOMMENDATIONS: 1. Continue present excellent medical therapy. 2. Follow-up visit with me in April 2013 prior to the patient's plans to go hunting. 3. If cortisone injections are planned for his knee or his toe, it would be best if these procedures are performed while the patient remains on antiplatelet therapy. If his Orthopedic surgeons would prefer, they can contact me directly and I would be happy to discuss the issue with them. We greatly appreciate the opportunity to help care of this most pleasant man. TODAYS ORDERS 1. Lipid profile/ALT 1 day 2. Return Visit 4 months Rohit Lechuga MD documented in this encounter Plan of Treatment Not on file documented as of this encounter Visit Diagnoses Not on filedocumented in this encounter Care Teams Campus Wellness Coordinator Relationship Specialty Start Date End Date Manuel Hare [address] [address] PCP - General 11/09/12 12/30/21 Rg Collins MD [address] [place] [id number] PCP - General Family Medicine 12/31/21 Rohit Lechuga MD [address] [place] [address] Cardiology 03/26/18 Rohit Lechuga MD [address] [place] [address] Assigned Heart and Vascular Provider 06/08/20 10/06/20 Rohit Lechuga MD [address] [place] [address] Assigned Heart and Vascular Provider 05/12/21 12/07/21 Nelli Amaya APRN CNP [address] [place] [id number] Assigned Heart and Vascular Provider 12/08/21 01/04/22 Xavier Kwan MD [address] [place] [address] [place] [address] Assigned Heart and Vascular Provider 01/05/22 05/01/23 documented as of this encounter
--- OUTSIDE RECORDS SUMMARY | 2024-01-05 07:41 | XMS_ITS | Clinical Summary ---
Author Name Unknown Organization [place] Address [facility] [place] [address] Care Team Providers Care Tool Shaper Setup Operator Name Role Phone Rohit Lechuga MD Unavailable [phone] Rg Collins MD Primary Care Provider [phone] Allergies No known active allergies Medications Medication [...] e triamcinolone (NASACORT) 55 MCG/ACT nasal aerosol [place] 2 sprays into both nostrils daily Active [...] branch of the nondominant circumflex Sleep apnea Family History Medical History Relation Comments No Known Problems Brother Hypertension Father No Known Problems Mother No Known Problems Sister Relation Status Comments Brother Alive Father Mother Sister Alive Social History Tobacco Use Types Packs/Day Years [...] 12/31/2021 1:09 PM CDT Plan of Treatment Health Maintenance Due Date Last Done Comments ADVANCE CARE PLANNING 1940 ANNUAL REVIEW OF HM ORDERS 1940 RSV VACCINE ( & 60+) (1 - 1-dose 60+ series) 2002 FALL RISK ASSESSMENT 2007 MEDICARE ANNUAL WELLNESS VISIT 2007 LIPID 02/02/2020 02/01/2019, 11/17, 04/19/2014 COVID-19 Vaccine ( season) 2023 11/13/2021, 05/13/2021, 11/06/2020, Additional history exists PHQ-2 (once per calendar year) 2023 INFLUENZA VACCINE (Season Ended) 2024 04/16/2021, 06/21/2020, 05/18/2020, Additional history exists DTAP/TDAP/TD IMMUNIZATION (4 - Td or Tdap) 12/15/2027 12/14/2017, 05/22/2008, 05/22/2008 Pneumococcal Vaccine: 65+ Years Completed 04/26/2015, 12/01/2012, 05/22/2008 ZOSTER IMMUNIZATION Completed 10/29/2018, 10/27/2018, 08/13/2018, Additional history exists HPV IMMUNIZATION Aged Out No longer e ligible based on patient's age to complete this topic IPV IMMUNIZATION Aged Out No longer e ligible based on patient's age to complete this topic MENINGITIS IMMUNIZATION Aged Out No l onger eligible based on patient's age to complete this topic RSV MONOCLONAL ANTIBODY Aged Out No l onger eligible based on patient's age to complete this topic Procedures Procedure Name Priority Date/Time Associated Diagnosis [...] Recently Relevant to Health Maintenance Care Teams Tool Shaper Setup Operator Relationship Specialty Start Date End Date Rg Collins MD [address] [place] [id number] PCP - General Family Medicine 12/31/21 Rohit Lechuga MD [address] [place] [id number] Cardiology 03/26/18
--- OUTSIDE RECORDS SUMMARY | 2024-01-05 07:41 | XMS_ITS | Continuity of Care Document ---
Author Name Unknown Organization [facility] Address [address] [address] [place] [address] Phone Care Team Providers Care Manager Risk Management Name Role Phone Link Jesus BERNAL Unavailable Unavailable Allergies, Adverse Reactions, Alerts Substance Reaction Status Criticality nitroglycerin Unknown Active No Information Medications Medication Instructions Dosage Effective Dates (start - stop) Status Comments hydrochlorothiazide 25 mg Tab take 1 tablet (25MG) by oral route every day 25 MG - Active simvastatin 40 mg Tab take 1 tablet (40MG) by oral route every day in the evening 40 MG - Active Multiple Vitamins Tab take 1 tablet by ORAL route every day with food 1 tablet - Active Vitamin D-3 400 unit Cap take 1 by Oral route every day 1 - Active VITAMIN B-12 (unknown strength) take 1 by Oral route every day Not Available - Active CALCIO TAI (unknown strength) take 1 Tablet by Oral route every day Not Available - Active CO Q-10 (unknown strength) qd Not Available - Active FISH OIL (unknown strength) QD Not Available - Active GLUCOSAMINE MSM (unknown strength) qd Not Available - Active TUMS (unknown strength) PRN Not Available - Active PRILOSEC (unknown strength) PRN Not Available - Active Procedures Procedure Date Colonoscopy Flex; W/remov Les- 11 Level Iv-surg Path Gross/micro 11 Advance Directives Directive Yes / No Effective Date File Name Resuscitation Not Answered N/A N/A Life Support Not Answered N/A N/A Intubation Not Answered N/A N/A Antibiotics Not Answered N/A N/A IV Fluid Support Not Answered N/A N/A Tube Feed Not Answered N/A N/A Other Directive N/A N/A WARNING:The information contained in this section is historical and is provided for information only and does not constitute a legal document or any assurance that the information is still accurate. Please verify the information with the yost of the legal document before using it for clinical purposes. Encounters Encounter Description Practice Location Reason(s) For Visit Diagnoses Date Provider Providers Copied on Encounter [facility] JACQUELINE V[address] [address], [place], [place], [id number], [place] tel:[phone] Donna [facility] Hemorrhoids NosPolyp-intes/rec t/stom-unc BehColon Cancer ScreeningBenign Neoplasm ColonInternal HemorrhoidsColon Cancer ScreeningInternal HemorrhoidsBenign Neoplasm Colon 1 Link MD Lee. [address] [facility], [facility] [address], [place], [place], [id number] , [place]. tel:[phone] Family History Family Member Type Diagnosis Age At Onset No Information Payers Payer name Insurance type Covered libertarian ID Authoriza tion(s) Medicare NGS MB [id number] Social History Type Description Quantity Date Captured Comments Alcohol Use Details Unknown Caffeine Use Details Unknown Tobacco Use Status No Information Smoking Status No Information Sex Male Chief Complaint And Reason For Visit No [...]
--- OUTSIDE RECORDS SUMMARY | 2024-01-05 07:41 | XMS_ITS | Encounter Summary ---
Author Name Unknown Organization [facility] [place] [address] Care Team Providers Care Manager Track Name Role Phone Manuel Hare Primary Care Provider [phone] Rohit Lechuga MD Unavailable [phone] ManRohit carrillo MD Unavailable [phone] Rohit Lechuga MD Unavailable [phone] Nelli Amaya APRN [employer]STATE PL[employer]ING [employer] Unavailable [phone] Rg Collins MD Primary Care Provider [phone] Xavier Kwan MD Unavailable [phone] Encounter Details Date Type Department Care Team (Late st Contact Info) Description 11/23/2012 Office Visit-[facility] [address] [place] [address] Yolie Young APRN [employer]STATE PL[employer]ING [place] Social History Tobacco Use Types Packs/Day Years Used Date Smoking Tobacco: Former Alcohol Use Standard Drinks/Week Comments Yes 0 (1 standard drink = 0.6 oz pur e alcohol) occasional Sex and Gender Information Value Date Recorded Sex Assigned at Not on file Gender Identity Not on file Sexual Orientation Not on file documented as of this encounter Progress Notes * Yolie Young NP - 11/25/2012 12:47 PM CDT Progress Note Created by: Yolie Young. N.P. #[id number] DATE: 11/23/2012 DWIGHT REDMOND DATE OF : 1940 AGE: [age] years old Referring Physician: MANUEL HARE Referring Clinic: [facility] CURRENT DIAGNOSES 1. - CAD, 414.00 2. - Hyperlipidemia, 272.4 3. Obesity-(<LT>100'), 278.00 4. - Hypertension, 401.1 5. Sleep apnea, 786.09 ALLERGIES nitroglycerin MEDICATIONS (prior to changes made today) 1. aspirin, buffered 81 mg tablet, 1 p.o. twice daily 2. atorvastatin 20 mg tablet, 1 p.o. daily hs 3. hydrochlorothiazide 25 mg tablet, 1 p.o. daily 4. metoprolol tartrate 25 mg tablet, 1 p.o. twice daily 5. nitroglycerin 0.4 mg tablet, sublingual, 1 Tab Sublingual - May Repeat Every 5 Minutes x2 For Chestpain 6. omeprazole 40 mg capsule,delayed release(DR/EC), 1 p.o. daily 7. Plavix 75 mg tablet, 1 p.o. daily CHIEF COMPLAINTS HISTORY OF PRESENT ILLNESS Dwight is a delightful 72-year-old gentleman who presents to the Cardiology Clinic today for a follow up visit after undergoing two interventions approximately one week apart by Dr. Lechuga. His past medical history is significant for hypertension, dyslipidemia, obesity, sleep apnea (which is treated with CPAP), right knee osteoarthritis status post knee surgery, and right eye surgery. He presented to our office after being directly referred from his primary care doctor when he had a significantly abnormal stress echocardiogram. He underwent coronary angiography following the results of that test on 11-11-12. At this time, Dr. Lechuga placed three stents in the proximal and mid LAD as well asthe first diagonal branch of the LAD. He was noted to have significant narrowing in the third obtuse marginal of the circumflex artery, which was recommended to have a follow up procedure. He was started on aspirin, Effient, metoprolol, and a statin. He did have some anginal symptoms, contacted our office, and was arranged to undergo a staged procedure on 11-18-11. Again, this was performed by Dr. Lechuga via a right radial approach. He had two drug eluting stents placed in the third obtuse marginal branch of the circumflex artery. A fasting lipid profile from December 2011 showed an LDL of 99. HDL was 53. Total cholesterol was 175. Triglycerides were 117. In the clinic today, Mr. Redmond states that he has been feeling quite well. Today was his first session of Cardiac Rehab. He did notice that at approximately 4 minutes into exercise, he had about a 1/10 in severity pain in his left upper chest area. This resolved by the time that he reached 5 minutes of exercise. He had no other associated symptoms. He specifically denies any shortness of breath, dyspnea, PND, orthopnea, lightheadedness, dizziness, presyncope, syncope, or palpitations. He isable to go about his activities of daily living without any symptoms of chest discomfort or angina. His blood pressure today was 123/66. Heart rate was 73 beats per minute. Weight was 272 pounds. Physical exam revealed a well appearing male who was overweight and in no acute distress. Lungs were clear to auscultation bilaterally. Cardiac exam revealed an S1 and S2 with a regular rate and rhythm. No murmurs, rubs, or gallops were noted. Pulses were full and equal in the carotid, radial, and dorsa lis pedal pulses. Abdomen was obese and nontender. Lower extremities revealed no edema. Please see below for remaining past medical history and physical exam. 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 INTEGUMENTARY denies any change in hair or nails, rashes, or skin lesions. EYES denies diplopia, history of glaucoma or visual field defects. EARS, NOSE, THROAT, MOUTH denies any hearing loss, epistaxis, hoarseness or difficulty speaking. RESPIRATORY denies dyspnea, cough, wheezing or hemoptysis. CARDIOVASCULAR chest pain, left upper side with activity, short acting. pt has 5 stents ABDOMINAL history of GERD MUSCULOSKELETAL arthritis of [...] disorders. PHYSICAL EXAMINATION VITAL SIGNS: Blood Pressure: 123/66Sitting, Right arm, large cuff Pulse- 73.00/min. Weight- 272.40 lbs. Height- 68 BMI Measurement: 41 CONSTITUTIONAL cooperative, alert and oriented,well developed, well [...] no masses, no hepatosplenomegaly, non- tender, no bruits PERIPHERAL PULSES pulses full and equal in all extremities, no bruits auscultated. EXTREMITIES & BACK no deformities, clubbing, cyanosis, erythema or edema observed. There are no spinal abnormalities noted. Normal muscle strength and tone. NEUROLOGICAL no gross motor deficits noted, affect appropriate, oriented to time, person and place. MEDICATIONS UPDATED/STARTED TODAY: aspirin, buffered 81 mg tablet, 1 p.o. twice daily, #0 (Zero) atorvastatin 20 mg tablet, 1 p.o. daily hs, #0 (Zero) nitroglycerin 0.4 mg tablet, sublingual, 1 Tab Sublingual - May Repeat Every 5 Minutes x2 For Chestpain, #30 (Thirty) MEDICATIONS REFILLED/STOPPED TODAY: aspirin, buffered 81 mg tablet 1 p.o. daily #1 (Not Dispensing) Dosage Increased and atorvastatin 20 mg tablet 1/2 tab qHS #1 (Not Dispensing) Dosage Increased IMPRESSIONS/PLAN 1. Coronary artery disease. He is status post percutaneous coronary intervention with the placementof five drug eluting stents on two separate occasions by Dr. Lechuga. At this point in time, he is on a good medication regimen including aspirin, Plavix, statin, and beta-pk therapy. He is feeling quite well and is active in Cardiac Rehab. He did report one episode of some anterior left sidedvery minimal chest discomfort today during exercise. However, this lasted for less than a minute and resolved on its own. He will continue to monitor his symptoms, and I have asked that he contact usshould he have progressive chest discomfort, chest discomfort that occurs with regular activity, orany required use of nitroglycerin. I do note that in the past that he has had intolerance to nitroglycerin. However, he does not recall what the reaction was. He reports no anaphylaxis or allergic type reaction to his knowledge. I see that he was given intracoronary nitroglycerin without complications in the Import/Export Agent. 2. Hypertension, which was well controlled on exam today. 3. Dyslipidemia. He is currently on atorvastatin therapy with a goal LDL of less than 70. We will recheck a fasting lipid profile at his next visit in approximately four to five weeks. 4. Obstructivesleep apnea. He is currently not using his CPAP. 5. Obesity. Diet and weight loss were discussed in the clinic today. He has already taken steps in significantly modifying his diet, plans to begin an exercise program through Cardiac Rehab, and continue on his own. It has been my pleasure participating in the care of Mr. Redmond in the clinic today. I have encouraged him to contact us with any questions or concerns that he may have prior to his next visit. TODAYS ORDERS 1. Lipid profile/ALT 1 month Yolie Young. N.P. documented in this encounter Plan of Treatment Not on file documented as of this encounter Visit Diagnoses Not on filedocumented in this encounter Care Teams Manager Track Relationship Specialty Start Date End Date Manuel Hare [address] [place] [address] PCP - General 11/09/12 12/30/21 Rg Collins MD [address] [place] [address] PCP - General Family Medicine 12/31/21 Rohit Lechuga MD [address] [place] [address] Cardiology 03/26/18 Rohit Lechuga MD [address] [place] [address] Assigned Heart and Vascular Provider 06/08/20 10/06/20 Rohit Lechuga MD [address] [place] [address] Assigned Heart and Vascular Provider 05/12/21 12/07/21 Nelli Amaya APRN CNP [address] [place] [address] Assigned Heart and Vascular Provider 12/08/21 01/04/22 Xavier Kwan MD [address] [place] [address] Assigned Heart and Vascular Provider 01/05/22 05/01/23 documented as of this encounter
== END 2024-01-05 07:40 | disposition home or self-care (01) ==
LOC: INJ CL 07:39
PROVIDERS: PCP Family Medicine; Visit Provider Family Medicine
DX: M54.16 Radiculopathy, lumbar region (principal); M51.36 Other intervertebral disc degeneration, lumbar region
CPT/HCPCS: 64483; J1100; Q9966

== ENCOUNTER 2024-02-23 07:37 | Outpatient (CLI) | payer OTHER, SELFPAY ==
--- OUTSIDE RECORDS SUMMARY | 2024-02-23 07:40 | XMS_ITS | Clinical Summary ---
Author Organization [facility] Address [place], [place] [address] Care Team Providers Care Sketcher Name Role Phone Rg Collins MD Primary Care Provider [phone] Allergies No known active allergies Medications Medication [...] Encounters Date Type Department Care Team Description 02/15/2024 Telephone [facility] [address] [place] [address] Dylan Graves MD Error-please disregard (ERROR) 02/12/2024 Telephone [facility] [address] [place] [address] Dylan Graves MD Results 02/11/2024 Telephone [facility] [address] [place] [address] Dylan Graves MD Questions 02/06/2024 10:08 AM CDT - 02/06/2024 11:59 PM CDT Hospital Encounter [facility] [address] [facility] [place] [address] Dylan Graves MD Lumbar radiculopathy; Spinal stenosis, lumbar region, with neurogenic claudication; Lumbar facet arthropathy 02/06/2024 Travel 01/27/2024 Telephone [facility] [address] [place] [address] Dylan Graves MD Follow Up (regarding shots in back ) 01/05/2024 8:20 AM CDT Office Visit [facility] [address] [place] [address] Dylan Graves MD Procedure (Bilateral L5-S1 TFESI) 12/22/2023 Telephone [facility] [address] [place] [address] Dylan Graves MD LUMBAR INJECTION ORDER from Last 3 Months Immunizations Name Administration [...] T Respiratory Rate 16 09/08/2023 2:05 PM WOOD FLOORING SPECIALIST Oxygen Saturation 97% 11/11/2023 3:23 PM CDT Inhaled Oxygen Concentration - - Weight 111.6 kg (246 lb) 09/08/2023 11:00 AM WOOD FLOORING SPECIALIST Height 172.7 cm (5' 8) 09/08/2023 11:00 AM WOOD FLOORING SPECIALIST Body Mass Index 37.4 09/08/2023 11:00 AM WOOD FLOORING SPECIALIST Plan of Treatment Upcoming Encounters Date Type Department Care Team (Late st Contact Info) Description 02/23/2024 8:20 AM CDT Office Visit [facility] [address] [place] [address] Dylan Graves MD [address] [place] [address] Health Maintenance Due Date Last Done Comments [...] Procedure Name Priority Date/Time Associated Diagnosis Comments MR SPINE LUMBAR WO Routine 02/06/2024 10 :38 AM CDT Lumbar radiculopathy Spinal stenosis, lumbar region, with neurogenic claudication Lumbar facet arthropathy AMB EPIDURAL STEROID INJECTION Routine 01/05/2024 12:00 AM CDT Lumbar radiculopathy Spinal stenosis, lumbar region, with neurogenic claudication Lumbar facet arthropathy from Last 3 Months Results * MR SPINE LUMBAR WO (02/06/2024 10:38 AM CDT) Anatomical Region Laterality Modality Spine, LUMBAR SPINE Magnetic Res onance 02/08/2024 7:15 AM CDT Impressions 02/08/2024 7:15 AM CDT 1. Mild lumbar curve convex to the right. Grade 1 anterolisthesis of L5 on S1 with associated bilateral pars defects 2. Asymmetric cortical irregularity and mild loss of height of the adjacent endplates along the left aspect of the interspace. Findings likely secondary to combination of chronic degenerative changes and Modic type [address] may be helpful for further evaluation. 3. At L1-2, mild narrowing of the spinal canal and bilateral neural foramina 4. At L2-3, moderate to severe narrowing of the spinal canal. Moderate narrowing of left neural foramen 5. At L3-4, moderate narrowing of left neural foramina. 6. At L4-5, mild narrowing of the bilateral neural foramina Dictated by Rubio Schneider MD @ 02/08/2024 7:15:22 AM (Electronically Signed) Narrative 02/08/2024 7:15 AM CDT For Patients: ??As a result of the Cures Act, medical imaging exams and procedure reports are released immediately into your electronic medical record. ??You may view this report before your referring provider. ??If you have questions, please contact your health care provider. INDICATION: Lumbar radiculopathy. Spinal stenosis. COMPARISON: 12/10/2022. Technique Sagittal T1, T2, and STIR sequences. Axial T1 and T2 weighted sequences. FINDINGS: Mild lumbar curve convex to the right. In sagittal plane, grade 1 anterolisthesis of L5 on S1 measured approximately 4 mm with associated bilateral pars defects. Otherwise, normal alignment. No acute fractures. There is asymmetric cortical regularity and mild loss of height with marrow edema involving the inferior endplate of L2 and superior endplate of L3 along the left aspect of the interspace finding may be secondary to a combination of chronic degenerative changes and Modic type 1 endplate changes. Superimposed Schmorl`s node at the inferior endplate of L2. No suspicious osseous lesions. Normal conus terminates at L1. [id number]: No spinal canal or neural foraminal narrowing. L1-2: Disc degeneration and loss disc height. Diffuse disc bulge and endplate osteophytic ridging. Mild narrowing of spinal canal. Mild narrowing of the bilateral foramina. L2-3: Disc degeneration loss disc height. Diffuse disc bulge and endplate osteophytic ridging eccentric to the left. Moderate severe narrowing of spinal canal. Moderate narrowing of the left neural foramen. No narrowing of the right neural foramen. Mild facet arthropathy. L3-4: Disc degeneration. Posterior disc bulge. Moderate narrowing of spinal canal. Mild right and moderate left neural foraminal narrowing. Mild facet arthropathy. L4-5: Disc degeneration. Diffuse disc bulge. No narrowing of spinal canal. Mild narrowing of bilateral foramina. L5-S1: Disc degeneration. Diffuse disc bulge. No narrowing of spinal canal. No impingement of the traversing S1 nerve roots. Oblique orientation of bilateral foramina with no narrowing. Mild facet arthropathy. Degenerative changes of the SI joints. Procedure Note Rubio Schneider MD, PhD - 02/08/2024 For Patients: As a result of the 21st Century Cures Act, medical imagingexams and procedure reports are released immediately into your electronicmedical record. You may view this report before your referring provider.If you have questions, please contact your health care provider. INDICATION: Lumbar radiculopathy. Spinal stenosis. COMPARISON: 12/10/2022. Technique Sagittal T1, T2, and STIR sequences. Axial T1 and T2 weightedsequences. FINDINGS: Mild lumbar curve convex to the right. In sagittal plane, grade 1anterolisthesis of L5 on S1 measured approximately 4 mm with associatedbilateral pars defects. Otherwise, normal alignment. No acute fractures. There is asymmetric cortical regularity and mild loss of height withmarrow edema involving the inferior endplate of L2 and superior endplateof L3 along the left aspect of the interspace finding may be secondary toa combination of chronic degenerative changes and Modic type 1 endplatechanges. Superimposed Schmorl`s node at the inferior endplate of L2. No suspicious osseous lesions. Normal conus terminates at L1. [id number]: No spinal canal or neural foraminal narrowing. L1-2: Disc degeneration and loss disc height. Diffuse disc bulge andendplate osteophytic ridging. Mild narrowing of spinal canal. Mildnarrowing of the bilateral foramina. L2-3: Disc degeneration loss disc height. Diffuse disc bulge and endplateosteophytic ridging eccentric to the left. Moderate severe narrowing ofspinal canal. Moderate narrowing of the left neural foramen. No narrowingof the right neural foramen. Mild facet arthropathy. L3-4: Disc degeneration. Posterior disc bulge. Moderate narrowing ofspinal canal. Mild right and moderate left neural foraminal narrowing.Mild facet arthropathy. L4-5: Disc degeneration. Diffuse disc bulge. No narrowing of spinal canal.Mild narrowing of bilateral foramina. L5-S1: Disc degeneration. Diffuse disc bulge. No narrowing of spinalcanal. No impingement of the traversing S1 nerve roots. Obliqueorientation of bilateral foramina with no narrowing. Mild facetarthropathy. Degenerative changes of the SI joints. IMPRESSION: 1. Mild lumbar curve convex to the right. Grade 1 anterolisthesis of L5 onS1 with associated bilateral pars defects 2. Asymmetric cortical irregularity and mild loss of height of theadjacent endplates along the left aspect of the interspace. Findingslikely secondary to combination of chronic degenerative changes and Modictype [address] may be helpful for further evaluation. 3. At L1-2, mild narrowing of the spinal canal and bilateral neuralforamina 4. At L2-3, moderate to severe narrowing of the spinal canal. Moderatenarrowing of left neural foramen 5. At L3-4, moderate narrowing of left neural foramina. 6. At L4-5, mild narrowing of the bilateral neural foramina Dictated by Rubio Schneider MD @ 02/08/2024 7:15:22 AM (Electronically Signed) Dylan Graves MD MR * AMB EPIDURAL STEROID INJECTION (01/05/2024 12:00 AM CDT) Dylan Graves MD NEUROLOGY ORD from Last 3 Months Advance Directives * Full Code (Latest Code Status on File) Date Activated Date Inactivated Comments 09/08/2023 8:50 AM 09/08/2023 6:23 PM Question Answer Comments Code Status Discussion: Unable to Assess Preferences, Provider to review later * Full Code Date Activated Date Inactivated Comments 05/13/2012 6:28 AM 05/13/2012 12:33 PM Care Teams Sketcher Relationship Specialty Start Date End Date Rg Collins MD [address] [place] [address] PCP - General Family Practice 07/24/20
--- OUTSIDE RECORDS SUMMARY | 2024-02-23 07:40 | XMS_ITS | Encounter Summary ---
Author Organization [place] Address [facility] [place] [address] Care Team Providers Care Flight Controls Engineer Name Role Phone PayamManuel chávez Starr Primary Care Provider + [phone] Rohit Lechuga MD Unavailable [phone] Rohit Lechuga MD Unavailable [phone] Rohit Lechuga MD Unavailable [phone] Nelli Amaya APRN JUNIOR [place]ALEGAL Unavailable [phone] Rg Collins MD Primary Care Provider [phone] Xavier Kwan MD Unavailable [phone] Encounter Details Date Type Department Care Team (Late st Contact Info) Description 04/28/2013 Office Visit-[facility] [address] [place] [address] [place] [address] [place] [address] [address] [place] [address] Social History Tobacco Use Types [...] old Referring Physician: MANUEL HARE Referring Clinic: [facility] CURRENT DIAGNOSES 1. - CAD, 414.00 2. - Hyperlipidemia, 272.4 3. Obesity-(<LT>100'), 278.00 4. - Hypertension, 401.1 5. Sleep apnea, 786.09 ALLERGIES nitroglycerin MEDICATIONS (prior to changes made today) 1. aspirin, buffered 81 mg tablet, 1 p.o. twice daily 2. atorvastatin 20 mg tablet, 1 p.o. daily hs 3. fluticasone 50 mcg/actuation [place], Suspension, 1 [place] each nostril twice daily 4. 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; Residence - lives in [place] year round; REVIEW OF SYSTEMS GENERAL feels [...] on filedocumented in this encounter Care Teams Flight Controls Engineer Relationship Specialty Start Date End Date Manuel Hare [address] [address] PCP - General 11/09/12 12/30/21 Rg Collins MD [facility] [address] [place] [address] PCP - General Family Medicine 12/31/21 Rohit Lechuga MD [address] [place] [id number] Cardiology 03/26/18 Rohit Lechuga MD [address] [place] [address] Assigned Heart and Vascular Provider 06/08/20 10/06/20 Rohit Lechuga MD [address] [place] [id number] Assigned Heart and Vascular Provider 05/12/21 12/07/21 Nelli Amaya APRN CNP [address] [place] [id number] Assigned Heart and Vascular Provider 12/08/21 01/04/22 Xavier Kwan MD [address] [place] [address] [place] [id number] Assigned Heart and Vascular Provider 01/05/22 05/01/23 documented as of this encounter
--- OUTSIDE RECORDS SUMMARY | 2024-02-23 07:40 | XMS_ITS | Continuity of Care Document ---
Author Organization [facility] Address [address] [place] [address] Phone Care Team Providers Care Principal Electrical Engineer Name Role Phone Melvin BERNAL, PhD, [place] Unavailable Unavai lable Allergies, Adverse Reactions, Alerts Substance Reaction Status Criticality No Known Allergies Active No Inform ation Medications Medication Instructions Dosage Effective Dates (start - stop) Status Comments NASACORT (unknown strength) Not Available - Active OMEPRAZOLE (unknown strength) Not Available - Active NITROGLYCERIN PATCH (unknown strength) Not Available - Active MULTIVITAMINS (unknown strength) Not Available - Active MONTELUKAST SODIUM (unknown strength) Not Available - Active METOPROLOL SUCCINATE (unknown strength) Not Available - Active MAGNESIUM (unknown strength) Not Available - Active CO Q-10 (unknown strength) Not Available - Active CALCIUM (unknown strength) Not Available - Active ATORVASTATIN CALCIUM (unknown strength) Not Available - Active ASPIRIN (unknown strength) Not Available - Active HYDROCHLOROTHIAZIDE (unknown strength) Not Available - Active Procedures Procedure Date Physician Telephone Evaluation 5-10 Min Physician Telephone Evaluation 5-10 Min Office/Outpatient Visit,Est, Mod 2019 Office/Outpatient Visit,New, Mod 2019 Advance Directives Directive Yes / No Effective Date File Name No Information Encounters Encounter Description Practice Location Reason(s) For Visit Diagnoses Date Provider Providers Copied on Encounter [facility], [address], [place], [id number], [place] tel:[phone] [facility] No Information 1 Melvin Schafer. [facility], [address], [place], [address], [place]. tel:[phone] Physician Telephone Evaluation 5-10 Min [facility], [address], [place], [id number], [place] tel:[phone] [facility] No Information 1 Melvin Schafer. [facility], [address], [place], [address], [place]. tel:[phone] Referring Provider: Rg Hess, [facility] [address] [place], [address]. tel:[phone] Physician Telephone Evaluation 5-10 Min [facility], [address], [place], [id number], [place] tel:[phone] [facility] No Information 1 Melvin Schafer. [facility], [address], [place], [address], [place]. tel:[phone] Referring Provider: Rg Hess, [facility] [address] [place], [address]. tel:[phone] Office/Outpat ient Visit,Est, Mod [facility], [address], [place], [id number], [place] tel:[phone] [facility] Spinal stenosis, lumbar region with neurogenic claudication 0 Melvin Schafer. [facility], [address], [place], [address], [place]. tel:[phone] Referring Provider: Rg Hess, [facility] [address] [place], [address]. tel:[phone] Office/Outpat ient Visit,New, Mod [facility], [address], [place], [id number], [place] tel:[phone] [facility] Spondylolisthe sis, lumbar regionOther spondylosis, lumbar region 0 Nick Louis. [facility], [address], [place], [place], [id number] , [place]. tel:[phone] Referring Provider: Rg Hess, [address], [address]. tel:[phone] Family History Family Member Type Diagnosis Age At Onset No Information Payers Payer name Insurance type Covered democrat ID Authoriza tidavid(s) [employer] Medicare [facility] CI [id number] Social History Type Description Quantity Date Captured [...]
--- OUTSIDE RECORDS SUMMARY | 2024-02-23 07:40 | XMS_ITS | Data Portability ---
Author Organization [place] [facility] [place] [facility], [facility] Address [address] [place] [address] Care Team Providers Care Psychological Anthropologist Name Role Phone [facility] Primary Care Pr ovider Assessment No assessment recorded. Plan of Treatment Reminders Order Date Submit Date Provider Last Modified By Organization Details Last Modified Time Details Appointments None recorded. Lab urinalysis, dipstick 2022 023 [facility], [address] [place], [address], 3 10:24:15 urinalysis, dipstick 2022 023 [facility], [address], [place], [address], 3 12:35:46 Referral None recorded. Procedures None recorded. Surgeries transurethr al resection of bladder tumor (SURG) 2022 023 Not available 4 16:41:[address], urogram 2022 023 [facility] Radiology Department, [address] [place], [address], 3 15:26:54 Medication Orders None recorded. Patient TargetsNo targets recorded. Patient InstructionsNo instructions recorded. Reason for Referral None Reported. Results Created Date Observation Date Name Description Value Unit Range Abnormal Flag LastModifiedBy Organization Detail LastModifiedTime 07/23/20 23 07/23/2023 urina lysis , dipst ick Color-Status Yellow Not Available [facility] [address], [place], [address], 07/23/2023 10:00:12 07/23/20 23 07/23/2023 urina lysis , dipst ick Clarity-Stat us Clear Not Available [facility] [address], [place], [address], 07/23/2023 10:00:12 07/23/20 23 07/23/2023 urina lysis , dipst ick Glucose-Stat us Negati ve Not Available [facility] [address], [place], [address], 07/23/2023 10:00:12 07/23/20 23 07/23/2023 urina lysis , dipst ick Bilirubin-St atus Negati ve Not Available [facility] [address], [place], [address], 07/23/2023 10:00:12 07/23/20 23 07/23/2023 urina lysis , dipst ick Ketones-Stat us Negati ve Not Available [facility] [address], [place], [address], 07/23/2023 10:00:12 07/23/20 23 07/23/2023 urina lysis , dipst ick Nitrates-Sta tus negati ve Not Available [facility] [address], [place], [address], 07/23/2023 10:00:12 07/23/20 23 07/23/2023 urina lysis , dipst ick Blood-Status Negati ve Not Available [facility] [address], [place], [address], 07/23/2023 10:00:12 07/23/20 23 07/23/2023 urina lysis , dipst ick Leuko-Status Trace Not Available [facility] [address], [place], [address], 07/23/2023 10:00:12 07/23/20 23 07/23/2023 urina lysis , dipst ick Specimen Type Voided Not Available [facility] [address], [place], [address], 07/23/2023 10:00:12 08/13/20 23 08/13/2023 urina lysis , dipst ick Color-Status Yellow Not Available [facility] [address], [place], [address], 08/13/2023 12:35:11 08/13/20 23 08/13/2023 urina lysis , dipst ick Clarity-Stat us Clear Not Available [facility] [address], [place], [address], 08/13/2023 12:35:11 08/13/20 23 08/13/2023 urina lysis , dipst ick pH-Status 6.0 Not Available [facility] [address], [place], [address], 08/13/2023 12:35:11 08/13/20 23 08/13/2023 urina lysis , dipst ick Blood-Status Trace Not Available [facility] [address], [place], [address], 08/13/2023 12:35:11 08/13/20 23 08/13/2023 urina lysis , dipst ick Leuko-Status Small Not Available [facility] [address], [place], [address], 08/13/2023 12:35:11 08/13/20 23 08/13/2023 urina lysis , dipst ick Specimen Type Voided Not Available [facility] [address], [place], [address], 08/13/2023 12:35:11 08/03/20 23 07/30/2023 CT, urogr am No observ ation record ed. [address] Radiology Department [address] [place], [address], 08/07/2023 14:37:14 Result Notes None recorded. Problems Name Status Onset Date Resolution Date Notes Provider Name and Address Organization Details Recorded Time Malignant neoplasm of urinary bladder Active 10/01/[address] scan at the time of dx. High grade T1 lesion. Thony Dhaliwal MD [address] [place] [address],[address], [place], [address] , [facility] 10/01/2023 11:23:14 Problem Notes None recorded. Procedures Surgical History Date Name Laterality Status Provider Name and Address Organization Details Recorded Time 10/01/19 24 COMPLEX VISIT completed Thony Dhaliwal MD [address] [place] [address],[address], [place], [address], [facility] 10/01/2023 11:24:51 08/17/19 24 transurethral excision of neoplasm of urinary bladder completed Thony Dhaliwal MD [address] [place] [address],[address] [place] [address], [address], [facility] 10/01/2023 11:03:50 08/13/20 23 Cystoscopy- male completed Thony Dhaliwal MD [address] [place] [address],[address], [address], [facility] 08/13/2023 12:56:29 08/17/19 20 colonoscopy completed Thony Dhaliwal MD [address] [place] [address],[address], [place], [address], [facility] 10/01/2023 11:04:11 Imaging Results Imaging Date Name Status LastModified by Organiz ation Details LastModified Time 07/30/2023 CT, urogram completed [address] Radiology Department [address] [place], [address], 08/07/2023 14:37:14 Procedure Notes None recorded. Medical Equipment None Reported. Allergies No known drug allergies Medications Name Sig Start Date Stop Date Status Note LastModified by Organization Details LastModified Time cefuroxime axetil 250 mg tablet 10/01 completed Not Available Not Available Not Available atorvastatin 20 mg tablet take 1 tablet (20 mg) orally at bedtime* active Not Available Not Available No t Available hydrocodone 5 mg-acetamino phen 325 mg tablet 10/01 completed Not Available Not Available Not Available ciprofloxaci n 500 mg tablet take 1 tablet (500 mg) orally twice a day; Take1 tablet twice daily for 7 days.* 08/13 completed Not Available Not Available Not Available sulfamethoxa zole 800 mg-trimethop rim 160 mg tablet 1 tab orally twice a day* 07/23 completed Not Available Not Available Not Available omeprazole 40 mg capsule,dione yed release take 1 capsule (40 mg) orally twice a day* active Not Available Not Available No t Available aspirin 81 mg tablet,delay ed release Take 1 tablet every day by oral route. active Not Available Not Available No t Available acetaminophe n 500 mg tablet Take 2 tablets every 6 hours by oral route. active Not Available Not Available No t Available calcium 600 mg (as calcium carbonate 1,500 mg) tablet Take by oral route. active Not Available Not Available No t Available montelukast 10 mg tablet take 1 tab (10 mg) orally every day* active Not Available Not Available No t Available hydrochlorot hiazide 25 mg tablet 25 mg orally daily* active Not Available Not Available No t Available metoprolol succinate ER 25 mg tablet,exten ded release 24 hr take 1 tab (25 mg) orally twice a day* active Not Available Not Available No t Available magnesium 250 mg (as magnesium oxide) tablet Take by oral route. active Not Available Not Available No t Available CoQ-10 active Not Available Not Availa ble Not Available Ferate 240 mg (27 mg iron) tablet TAKE TWO TABLETS BY MOUTH DAILY 07/23 completed Not Available Not Available Not Available Vitals Date Recorded Body height Body mass index (BMI) Body weight Provider Name and Address Organization Details Last Updated DateTime 07/23/2023 172.72 cm 37.3 kg/m2 280382.13 g Geetha Angeles [facility] 07/23/2023 09:56:24 Date Recorded Body height Body mass index (BMI) Body weight Provider Name and Address Organization Details Last Updated DateTime 08/13/2023 172.72 cm 37.3 kg/m2 221020.13 g Thony Dhaliwal MD [address] [place] [address],[address] [address] [place] [address] Urolog 08/13/2023 12:34:28 Date Recorded Body height Body mass index (BMI) Body weight Provider Name and Address Organization Details Last Updated DateTime 10/01/2023 172.72 cm 37.3 kg/m2 700527.13 g Thony Dhaliwal MD [address] [place] [address],[address] [address] [place] [address] Urology 10/01/2023 11:00:57 Social History Question Answer Notes LastModified by Organizat ion Details LastModified Time Tobacco Smoking Status Former Smoker Geetha chang [facility] 07/23/2023 09:59:30 What Is Your Level Of Alcohol Consumption? Moderate Information not available 07/23/2023 What Is Your Level Of Caffeine Consumption? None Information not available 07/23/2023 When Did You Quit Smoking? 16+yearssincel astcigarette Information not available 07/23/2023 What Was The Date Of Your Most Recent Tobacco Screening? 10/01/2023 Information not available 10/01/2023 How Many Days In The Past Year Have You Consumed 5 Or More Drinks? 0 Information not available 10/01/2023 Sex: Unknown Functional Status None recorded. Mental Status None recorded. Family History Relationship Description Onset Age of this Age Resolved Age Notes Father No current problems or disability Mother No current problems or disability Medical History Condition Response Other N High Blood Pressure N Kidney Stones N Lung Disease N Depression N GERD/Acid Reflux N Sexually Transmitted Infection N Cancer Y High Cholesterol N Diabetes N Bleeding Disorder N Heart Disease N Immunizations Vaccine Type Date Status Provider Name and Address Organization Details Recorded Time Influenza, recombinant, quadrivalent, PF 05/18/2020 completed Thony Dhaliwal MD [address] [place] [address],[address], [place], [address], [facility] 08/13/2023 12:34:37 Influenza, recombinant, quadrivalent, PF 05/24/2019 completed Thony Dhaliwal MD [address] [place] [address],[address], [place], [address], [facility] 08/13/2023 12:34:37 zoster recombinant 10/27/2018 completed Thony holman MD [address] [place] [address],[address], [place], [address], [facility] 08/13/2023 12:34:37 zoster recombinant 05/31/2018 completed Thony holman MD [address] [place] [address],[address], [place], [address], [facility] 08/13/2023 12:34:37 zoster recombinant 08/13/2018 completed Thony holman MD [address] [place] [address],[address], [place], [address], [facility] 08/13/2023 12:34:37 Influenza, high-dose, quadrivalent, PF 04/04/2023 completed Thony Dhaliwal MD [address] [place] [address],[address], [place], [address], [facility] 08/13/2023 12:34:37 Influenza, high-dose, quadrivalent, PF 04/16/2021 completed Thony Dhaliwal MD [address] [place] [address],[address], [place], [address], [facility] 08/13/2023 12:34:37 Influenza, high-dose, quadrivalent, PF 04/16/2022 completed Thony Dhaliwal MD [address] [place] [address],[address], [place], [address], [facility] 08/13/2023 12:34:37 COVID-19, mRNA, LNP-S, PF, 30 mcg/0.3 mL dose 10/16/2020 completed Thony Dhaliwal MD [address] [place] [address],[address], [place], [address], [facility] 08/13/2023 12:34:37 COVID-19, mRNA, LNP-S, PF, 30 mcg/0.3 mL dose 11/06/2020 completed Thony Dhaliwal MD [address] [place] [address],[address], [place], [address], [facility] 08/13/2023 12:34:37 COVID-19, mRNA, LNP-S, PF, 30 mcg/0.3 mL dose 05/13/2021 completed Thony Dhaliwal MD [address] [place] [address],[address] [facility], [place], [address], [facility] 08/13/2023 12:34:37 COVID-19, mRNA, LNP-S, PF, 30 mcg/0.3 mL dose, nicole-sucrose 11/13/2021 completed Thony Dhaliwal MD [address] [place] [address],[address], [place], [address], [facility] 08/13/2023 12:34:37 COVID-19, mRNA, LNP-S, bivalent, PF, 30 mcg/0.3 mL dose 05/06/2022 completed Thony Dhaliwal MD [address] [place] [address],[address], [address], [facility] 08/13/2023 12:34:37 pneumococcal polysaccharide PPV23 12/01/2012 completed Thony Dhaliwal MD [address] [place] [address],[place] [address], [place], [address], [facility] 08/13/2023 12:34:37 pneumococcal polysaccharide PPV23 05/22/2008 completed Thony Dhaliwal MD [address] [place] [address],[address], [address], [facility] 08/13/2023 12:34:37 influenza, unspecified formulation 05/02/2014 completed Thony Dhaliwal MD [address] [place] [address],[address], [address], [facility] 08/13/2023 12:34:37 Tdap 05/22/2008 completed Thony Dhaliwal MD [address] [place] [address],[address], [address], [facility] 08/13/2023 12:34:37 Pneumococcal conjugate PCV 13 04/26/2015 completed Thony Dhaliwal MD [address] [place] [address],[address], [address], [facility] 08/13/2023 12:34:37 zoster live 12/01/2012 completed Thony Dhaliwal MD [address] [place] [address],[address] [place], [address], [facility] 08/13/2023 12:34:37 Influenza, high-dose, trivalent, PF 04/07/2017 completed Thony Dhaliwal MD [address] [place] [address],[address], [address], [facility] 08/13/2023 12:34:37 Influenza, split virus, trivalent, preservative 05/22/2008 completed Thony Dhaliwal MD [address] [place] [address],[address], [address], [facility] 08/13/2023 12:34:37 Novel wewcnbyri-[id number] 06/29/2009 completed Thony Dhaliwal MD [address] [place] [address],[address], [address], [facility] 08/13/2023 12:34:37 Td (adult), 5 Lf tetanus toxoid, preservative free, adsorbed 12/14/2017 completed Thony Dhaliwal MD [address] [place] [address],[address], [address], [facility] 08/13/2023 12:34:37 Influenza, split virus, quadrivalent, PF 06/09/2019 completed Thony Dhaliwal MD [address] [place] [address],[address], [address], [facility] 08/13/2023 12:34:37 Influenza, split virus, quadrivalent, PF 06/21/2020 completed Thony Dhaliwal MD [address] [place] [address],[address], [address], [facility] 08/13/2023 12:34:37 Influenza, split virus, quadrivalent, PF 06/29/2009 completed Thony Dhaliwal MD [address] [place] [address],[address] [address], [facility] 08/13/2023 12:34:37 Past Encounters Encounter ID Performer Location Encounter Start Date Encounter Closed Date Diagnosis/Indication Diagnosis SNOMED-CT Code [id number] Thony Dhaliwal MD [facility] [address] [place] [address] 07/23/2023 09:20:37 07/24/2023 17:00:40 Krishna hematuria [id number] MD YANIRA [facility] [address] [place] [address] 08/13/2023 12:14:47 08/23/2023 16:05:56 Krishna hematuria [id number] Malignant neoplasm of urinary bladder [id number] MD YANIRA [facility] [address] [address] 10/01/2023 10:20:28 10/09/2023 10:09:36 Malignant neoplasm of urinary bladder [id number] Health Concerns Section Related Observation LastModified by Organization Detai ls LastModified Time None Recorded Concern Status LastModified by Organization Details LastModified Time None Recorded Advance Directives Directive None Recorded Payers Encounter Date Sequence Insurance Name Policy Number Policy Lutz Covered Member ID Lutz Member ID Guarantor Name 07/23/2023 1 [employer] [id number] 1 Maxwell Redmond [id number] Maxwell Redmond 08/13/2023 1 [employer] [id number] Maxwell Redmond [id number] Maxwell Redmond 10/01/2023 1 [employer] [id number] Maxwell Redmond [id number] Maxwell Redmond Notes Date Note Type Note Provider Name and Address Organization Details Recorded Time 07/23/2023 text/html HPI Notes: Referred for bright red gross hematuria. The lasted a few days and then resolved. He was treated with Cipro and it resolved but then recurred again. He then took more antibiotics and then it resolved. He did not have much dysuria. Today his UA is entirely clear. He drinks whisky and water each night. He takes a daily aspirin but no other anticoagulation. Non smoker. He also has chronic left groin pain. He reports some type of body scan in [place] about a month ago. This was for back pain. Thony Dhaliwal MD [address] [facility] [address], [place], [address], [place] [facility] 07/23/2023 10:24:31 08/13/2023 text/html HPI Notes: bladd er mass detected on recent CT scan for hematuria. Thony Dhaliwal MD [address] [facility] [address] [address], [place], [address], [facility] 08/13/2023 12:59:16 10/01/2023 text/html HPI Notes: f/u f or bladder cancer. Thony Dhaliwal MD [address] [facility] [address], [place], [address], [facility] 10/01/2023 11:25:23
--- OUTSIDE RECORDS SUMMARY | 2024-02-23 07:40 | XMS_ITS | Referral Summary ---
Author Organization [place] Address [facility] [place] [address] Care Team Providers Care Professional Sports Scout Name Role Phone Rohit Lechuga MD Unavailable [phone] Rg Collins MD Primary Care Provider [phone] Allergies No known active allergies Medications Medication [...] e triamcinolone (NASACORT) 55 MCG/ACT nasal aerosol [place] 2 sprays into both nostrils daily Active [...] Recently Relevant to Health Maintenance Care Teams Professional Sports Scout Relationship Specialty Start Date End Date Rg Collins MD [facility] [address] [place] [address] PCP - General Family Medicine 12/31/21 Rohit Lechuga MD [address] [place] [address] Cardiology 03/26/18
--- OUTSIDE RECORDS SUMMARY | 2024-02-23 07:40 | XMS_ITS | Encounter Summary ---
Author Organization [place] Address [facility]0 [facility] [place] [address] Care Team Providers Care Qa Specialist Name Role Phone PayamManuel chávez Starr Primary Care Provider + [phone] Rohit Lechuga MD Unavailable [phone] Rohit Lechuga MD Unavailable [phone] Rohit Lechuga MD Unavailable [phone] Nelli Amaya APRN TIE INSPECTOR Unavailable [phone] Rg Collins MD Primary Care Provider [phone] Xavier Kwan MD Unavailable [phone] Encounter Details Date Type Department Care Team (Late st Contact Info) Description 12/15/2012 Office Visit-[facility] [address] [place] [address] [place] [address] [place] [address] [address] [place] [address] Social History Tobacco Use Types [...] old Referring Physician: MANUEL HARE Referring Clinic: [facility] CURRENT DIAGNOSES 1. - CAD, 414.00 2. - Hyperlipidemia, 272.4 3. Obesity-(<LT>100'), 278.00 4. - Hypertension, 401.1 5. Sleep apnea, 786.09 ALLERGIES nitroglycerin MEDICATIONS (prior to changes made today) 1. aspirin, buffered 81 mg tablet, 1 p.o. twice daily 2. atorvastatin 20 mg tablet, 1 p.o. daily hs 3. fluticasone 50 mcg/actuation [place], Suspension, 1 [place] each nostril twice daily 4. 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 MEDICATIONS UPDATED/STARTED TODAY: fluticasone 50 mcg/actuation [place], Suspension, 1 [place] each nostril twice daily, #0 (Zero) metoprolol [...] on filedocumented in this encounter Care Teams Qa Specialist Relationship Specialty Start Date End Date Manuel Hare [address] [id number] PCP - General 11/09/12 12/30/21 Rg Collins MD [facility] [address] [place] [address] PCP - General Family Medicine 12/31/21 Rohit Lechuga MD [address] [place] [id number] Cardiology 03/26/18 Rohit Lechuga MD [address] [place] [id number] Assigned Heart and Vascular Provider 06/08/20 10/06/20 Rohit Lechuga MD [address] [place] [address] Assigned Heart and Vascular Provider 05/12/21 12/07/21 Nelli Amaya APRN TIE INSPECTOR [address] [place] [id number] Assigned Heart and Vascular Provider 12/08/21 01/04/22 Xavier Kwan MD [address] [place] [id number] Assigned Heart and Vascular Provider 01/05/22 05/01/23 documented as of this encounter
--- OUTSIDE RECORDS SUMMARY | 2024-02-23 07:40 | XMS_ITS | Encounter Summary ---
Author Organization [place] Address [facility] [place] [address] Care Team Providers Care Claims Adjuster Name Role Phone Manuel Hare Primary Care Provider + [phone] Rohit Lechuga MD Unavailable [phone] Rohit Lechuga MD Unavailable [phone] Rohit Lechuga MD Unavailable [phone] Nelli Amaya APRN [facility] Unavailable [phone] Rg Collins MD Primary Care Provider [phone] Xavier Kwan MD Unavailable [phone] Encounter Details Date Type Department Care Team (Late st Contact Info) Description 11/10/2012 Office Visit-[facility] [address] [place] [address] [place] [address] [place] [address] [address] [place] [address] Social History Tobacco Use Types [...] . 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 He has two children. He has horses [...] surgery for failed PCI, and need for jail thienopyridine therapy should we implant a stent. [...] right radial artery, scheduled for 11/11/2012 at [facility]. We greatly appreciate the opportunity to care for your patient, Mr. Maxwell Redmond. Rohit Lechuga M.D. documented in this encounter Plan of Treatment Not on file documented as of this encounter Visit Diagnoses Not on filedocumented in this encounter Care Teams Claims Adjuster Relationship Specialty Start Date End Date Payam Manuel Clements [address] [address] PCP - General 11/09/12 12/30/21 Rg Collins MD [facility] [address] [place] [address] PCP - General Family Medicine 12/31/21 Rohit Lechuga MD [address] [place] [id number] Cardiology 03/26/18 Rohit Lechuga MD [address] [place] [address] Assigned Heart and Vascular Provider 06/08/20 10/06/20 Rohit Lechuga MD [address] [place] [address] Assigned Heart and Vascular Provider 05/12/21 12/07/21 Nelli Amaya APRN CNP [address] [place] [address] Assigned Heart and Vascular Provider 12/08/21 01/04/22 Xavier Kwan MD [address] [facility] [address] [place] [address] Assigned Heart and Vascular Provider 01/05/22 05/01/23 documented as of this encounter
--- OUTSIDE RECORDS SUMMARY | 2024-02-23 07:40 | XMS_ITS | Clinical Summary ---
Author Organization [place] Address [facility]0 [facility] [place] [address] Care Team Providers Care Solar Maintenance Technician Name Role Phone Rohit Lechuga MD Unavailable [phone] Rg Collins MD Primary Care Provider [phone] Allergies No known active allergies Medications Medication [...] e triamcinolone (NASACORT) 55 MCG/ACT nasal aerosol [place] 2 sprays into both nostrils daily Active [...] Date Smoking Tobacco: Former Cigarettes Q uit: 1973 Smokeless Tobacco: Never Alcohol Use Standard Drinks/Week [...] (once per calendar year) 2023 INFLUENZA VACCINE (#1) 2024 , 06/21/2020, 05/18/2020, Additional history exists DTAP/TDAP/TD IMMUNIZATION [...] Recently Relevant to Health Maintenance Care Teams Solar Maintenance Technician Relationship Specialty Start Date End Date Rg Collins MD [facility] [address] [place] [address] PCP - General Family Medicine 12/31/21 Rohit Lechuga MD [address] [place] [address] Cardiology 03/26/18
--- OUTSIDE RECORDS SUMMARY | 2024-02-23 07:40 | XMS_ITS | Encounter Summary ---
Author Organization [place] Address [facility]0 [facility] [place] [address] Care Team Providers Care Liquor Bridge Operator Name Role Phone Manuel Hare Primary Care Provider + [phone] Rohit Lechuga MD Unavailable [phone] Rohit Lechuga MD Unavailable [phone] Rohit Lechuga MD Unavailable [phone] Nelli Amaya APRN HOUSING INSPECTOR Unavailable [phone] Rg Collins MD Primary Care Provider [phone] Xavier Kwan MD Unavailable [phone] Encounter Details Date Type Department Care Team (Late st Contact Info) Description 11/23/2012 Office Visit-[facility] [address] [place] [address] Yolie Young APRN HOUSING INSPECTOR Social History Tobacco Use Types Packs/Day Years [...] Progress Note Created by: Yolie Young. N.P. #[id number] DATE: 11/23/2012 DWIGHT REDMON[place] DATE OF : [...] following the results of that test on 3-28-13. At this time, Dr. 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 2. Hypertension, which was well controlled on [...] on filedocumented in this encounter Care Teams Liquor Bridge Operator Relationship Specialty Start Date End Date Maunel Hare [address] [place] [address] PCP - General 11/09/12 12/30/21 Rg Collins MD [facility] [address] [place] [address] PCP - General Family Medicine 12/31/21 Rohit Lechuga MD [address] [place] [id number] Cardiology 03/26/18 Rohit Lechuga MD [address] [place] [address] Assigned Heart and Vascular Provider 06/08/20 10/06/20 Rohit Lechuga MD [address] [place] [address] Assigned Heart and Vascular Provider 05/12/21 12/07/21 Nelli Amaya APRN HOUSING INSPECTOR [address] [place] [address] Assigned Heart and Vascular Provider 12/08/21 01/04/22 Xavier Kwan MD [address] [place] [place] [id number] Assigned Heart and Vascular Provider 01/05/22 05/01/23 documented as of this encounter
--- OUTSIDE RECORDS SUMMARY | 2024-02-23 07:40 | XMS_ITS | Continuity of Care Document ---
Author Organization [facility] Address [address] [address] [place] [address] Phone Care Team Providers Care Batter Mixer Helper Name Role Phone Link Jesus BERNAL Unavailable [...] Diagnoses Date Provider Providers Copied on Encounter [facility] [address] [address], [place], [place], [id number], [place] tel:[phone] Donna [facility] Hemorrhoids NosPolyp-intes/rec t/stom-unc BehColon Cancer ScreeningBenign Neoplasm ColonInternal HemorrhoidsColon Cancer ScreeningInternal HemorrhoidsBenign Neoplasm Colon 1 Link MD Lee. [address] [facility], [facility] [address], [place], [place], [id number] , [place]. tel:[phone] Family History Family Member Type Diagnosis Age At Onset No Information Payers Payer name Insurance type Covered green party ID Authoriza tion(s) Medicare NGS MB [id number] Social History Type Description Quantity Date Captured [...]
== END 2024-02-23 07:38 | disposition home or self-care (01) ==
LOC: INJ CL 07:37
PROVIDERS: PCP Family Medicine; Visit Provider Family Medicine
DX: M54.16 Radiculopathy, lumbar region (principal); M48.062 Spinal stenosis, lumbar region with neurogenic claudication; M51.36 Other intervertebral disc degeneration, lumbar region
CPT/HCPCS: 62323; J0702; Q9966

== ENCOUNTER 2024-04-05 10:08 | Outpatient (CLI) | payer OTHER, SELFPAY ==
--- OUTSIDE RECORDS SUMMARY | 2024-04-05 10:11 | XMS_ITS | Data Portability ---
Author Organization [facility] [place] [facility], [facility] Address [address] [place] [address] Care Team Providers Care Heating And Ventilation Engineer Name Role Phone [facility] Primary Care Pr ovider Assessment No assessment recorded. Plan of Treatment Reminders Order Date Submit Date Provider Last Modified By Organization Details Last Modified Time Details Appointments None recorded. Lab urinalysis, dipstick 2022 023 [facility], [address] [place], [address], 3 10:24:15 urinalysis, dipstick 2022 023 [facility], [address], [place], [address], 3 12:35:46 Referral None recorded. Procedures None recorded. Surgeries transurethr al resection of bladder tumor (SURG) 2022 023 [email or web address] Not available 4 16:41:[address], urogram 2022 023 [facility] Radiology Department, [address] [place], [address], 3 15:26:54 Medication Orders None recorded. Patient TargetsNo targets recorded. Patient InstructionsNo instructions recorded. Reason for Referral None Reported. Results Created Date Observation Date Name Description Value Unit Range Abnormal Flag LastModifiedBy Organization Detail LastModifiedTime 07/23/20 23 07/23/2023 urina lysis , dipst ick Color-Status Yellow Not Available [facility] [address], [place], [address], 07/23/2023 10:00:12 07/23/20 23 07/23/2023 urina lysis , dipst ick Clarity-Stat us Clear Not Available [facility] [address], [place], [address], 07/23/2023 10:00:12 07/23/20 23 07/23/2023 urina lysis , dipst ick Glucose-Stat us Negati ve Not Available [facility] [address], [place], [address], 07/23/2023 10:00:12 07/23/20 23 07/23/2023 urina lysis , dipst ick Bilirubin-St atus Negati ve Not Available [facility] [address], [place], [address], 07/23/2023 10:00:12 07/23/20 23 07/23/2023 urina lysis , dipst ick Ketones-Stat us Negati ve Not Available [facility] [address], [place], [address], 07/23/2023 10:00:12 07/23/20 23 07/23/2023 urina lysis , dipst ick Nitrates-Sta tus negati ve Not Available [facility] [address], [place], [address], 07/23/2023 10:00:12 07/23/20 23 07/23/2023 urina lysis , dipst ick Blood-Status Negati ve Not Available [facility] [address], [place], [address], 07/23/2023 10:00:12 07/23/20 23 07/23/2023 urina lysis , dipst ick Leuko-Status Trace Not Available [facility] [address], [place], [address], 07/23/2023 10:00:12 07/23/20 23 07/23/2023 urina lysis , dipst ick Specimen Type Voided Not Available [facility] [address], [place], [address], 07/23/2023 10:00:12 08/13/20 23 08/13/2023 urina lysis , dipst ick Color-Status Yellow Not Available [facility] [address], [place], [address], 08/13/2023 12:35:11 08/13/20 23 08/13/2023 urina lysis , dipst ick Clarity-Stat us Clear Not Available [facility] [address], [place], [address], 08/13/2023 12:35:11 08/13/20 23 08/13/2023 urina lysis , dipst ick pH-Status 6.0 Not Available [facility] [address], [place], [address], 08/13/2023 12:35:11 08/13/20 23 08/13/2023 urina lysis , dipst ick Blood-Status Trace Not Available [facility] [address], [place], [address], 08/13/2023 12:35:11 08/13/20 23 08/13/2023 urina lysis , dipst ick Leuko-Status Small Not Available [facility] [address], [place], [address], 08/13/2023 12:35:11 08/13/20 23 08/13/2023 urina lysis , dipst ick Specimen Type Voided Not Available [facility] [address], [place], [address], 08/13/2023 12:35:11 08/03/20 23 07/30/2023 CT, urogr am No observ ation record ed. [address] Radiology Department [address] [place], [address], 08/07/2023 14:37:14 Result Notes None recorded. Problems Name Status Onset Date Resolution Date Notes Provider Name and Address Organization Details Recorded Time Malignant neoplasm of urinary bladder Active 10/01/[address] scan at the time of dx. High grade T1 lesion. Thony Dhaliwal MD [address] [place] [address],[address], [address] , [facility] 10/01/2023 11:23:14 Problem Notes None recorded. Procedures Surgical History Date Name Laterality Status Provider Name and Address Organization Details Recorded Time 10/01/19 24 COMPLEX VISIT completed Thony Dhaliwal MD [address] [place] [address],[address], [address], [facility] 10/01/2023 11:24:51 08/17/19 24 transurethral excision of neoplasm of urinary bladder completed Thony Dhaliwal MD [address] [place] [address],[address] [place] [address], [address], [facility] 10/01/2023 11:03:50 08/13/20 23 Cystoscopy- male completed Thony Dhaliwal MD [address] [place] [address],[address], [address], [facility] 08/13/2023 12:56:29 08/17/19 20 colonoscopy completed Thony Dhaliwal MD [address] [place] [address],[address], [address], [facility] 10/01/2023 11:04:11 Imaging Results Imaging Date Name Status LastModified by Organiz ation Details LastModified Time 07/30/2023 CT, urogram completed [address] Radiology Department [address] [place], [address], 08/07/2023 14:37:14 Procedure Notes None recorded. Medical [...] Updated DateTime 07/23/2023 172.72 cm 37.3 kg/m2 096091.13 g Geetha Angeles [facility] 07/23/2023 09:56:24 Date Recorded Body height Body mass index (BMI) Body weight Provider Name and Address Organization Details Last Updated DateTime 08/13/2023 172.72 cm 37.3 kg/m2 406356.13 g Thony Dhaliwal MD [address] [place] [address],[address] [address] [place] [address] Urolog 08/13/2023 12:34:28 Date Recorded Body height Body mass index (BMI) Body weight Provider Name and Address Organization Details Last Updated DateTime 10/01/2023 172.72 cm 37.3 kg/m2 284762.13 g Thony Dhaliwal MD [address] [place] [address],[address] [address] [place] [address] Urology 10/01/2023 11:00:57 Social History Question Answer Notes LastModified by Organizat ion Details LastModified Time Tobacco Smoking Status Former Smoker Geetha chang [facility] 07/23/2023 09:59:30 What Is Your Level [...] quadrivalent, PF 05/18/2020 completed Thony Dhaliwal MD [address] [place] [address],[address], [place], [address], [facility] 08/13/2023 12:34:37 Influenza, recombinant, quadrivalent, PF 05/24/2019 completed Thony Dhaliwal MD [address] [place] [address],[address], [place], [address], [facility] 08/13/2023 12:34:37 zoster recombinant 10/27/2018 completed Thony holman MD [address] [place] [address],[address], [place], [address], [facility] 08/13/2023 12:34:37 zoster recombinant 05/31/2018 completed Thony holman MD [address] [place] [address],[address], [place], [address], [facility] 08/13/2023 12:34:37 zoster recombinant 08/13/2018 completed Thony holman MD [address] [place] [address],[address], [place], [address], [facility] 08/13/2023 12:34:37 Influenza, high-dose, quadrivalent, PF 04/04/2023 completed Thony Dhaliwal MD [address] [place] [address],[address], [place], [address], [facility] 08/13/2023 12:34:37 Influenza, high-dose, quadrivalent, PF 04/16/2021 completed Thony Dhaliwal MD [address] [place] [address],[address], [place], [address], [facility] 08/13/2023 12:34:37 Influenza, high-dose, quadrivalent, PF 04/16/2022 completed Thony Dhaliwal MD [address] [place] [address],[address], [place], [address], [facility] 08/13/2023 12:34:37 COVID-19, mRNA, LNP-S, PF, 30 mcg/0.3 mL dose 10/16/2020 completed Thony Dhaliwal MD [address] [place] [address],[address], [place], [address], [facility] 08/13/2023 12:34:37 COVID-19, mRNA, LNP-S, PF, 30 mcg/0.3 mL dose 11/06/2020 completed Thony Dhaliwal MD [address] [place] [address],[address], [place], [address], [facility] 08/13/2023 12:34:37 COVID-19, mRNA, LNP-S, PF, 30 mcg/0.3 mL dose 05/13/2021 completed Thony Dhaliwal MD [address] [place] [address],[address] [facility], [place], [address], [facility] 08/13/2023 12:34:37 COVID-19, mRNA, LNP-S, PF, 30 mcg/0.3 mL dose, nicole-sucrose 11/13/2021 completed Thony Dhaliwal MD [address] [place] [address],[address], [place], [address], [facility] 08/13/2023 12:34:37 COVID-19, mRNA, LNP-S, bivalent, PF, 30 mcg/0.3 mL dose 05/06/2022 completed Thony Dhaliwal MD [address] [place] [address],[address], [address], [facility] 08/13/2023 12:34:37 pneumococcal polysaccharide PPV23 12/01/2012 completed Thony Dhaliwal MD [address] [place] [address],[place] [address], [place], [address], [facility] 08/13/2023 12:34:37 pneumococcal polysaccharide PPV23 05/22/2008 completed Thony Dhaliwal MD [address] [place] [address],[address], [address], [facility] 08/13/2023 12:34:37 influenza, unspecified formulation 05/02/2014 completed Thony Dhaliwal MD [address] [place] [address],[address], [address], [facility] 08/13/2023 12:34:37 Tdap 05/22/2008 completed Thony Dhaliwal MD [address] [place] [address],[address], [address], [facility] 08/13/2023 12:34:37 Pneumococcal conjugate PCV 13 04/26/2015 completed Thony Dhaliwal MD [address] [place] [address],[address], [address], [facility] 08/13/2023 12:34:37 zoster live 12/01/2012 completed Thony Dhaliwal MD [address] [place] [address],[address] [place], [address], [facility] 08/13/2023 12:34:37 Influenza, high-dose, trivalent, PF 04/07/2017 completed Thony Dhaliwal MD [address] [place] [address],[address], [address], [facility] 08/13/2023 12:34:37 Influenza, split virus, trivalent, preservative 05/22/2008 completed Thony Dhaliwal MD [address] [place] [address],[address], [address], [facility] 08/13/2023 12:34:37 Novel [id number] 06/29/2009 completed Thony Dhaliwal MD [address] [place] [address],[address], [address], [facility] 08/13/2023 12:34:37 Td (adult), 5 Lf tetanus toxoid, preservative free, adsorbed 12/14/2017 completed Thony Dhaliwal MD [address] [place] [address],[address], [address], [facility] 08/13/2023 12:34:37 Influenza, split virus, quadrivalent, PF 06/09/2019 completed Thony Dhaliwal MD [address] [place] [address],[address], [address], [facility] 08/13/2023 12:34:37 Influenza, split virus, quadrivalent, PF 06/21/2020 completed Thony Dhaliwal MD [address] [place] [address],[address], [address], [facility] 08/13/2023 12:34:37 Influenza, split virus, quadrivalent, PF 06/29/2009 completed Thony Dhaliwal MD [address] [place] [address],[address] [address], [facility] 08/13/2023 12:34:37 Past Encounters Encounter ID Performer Location Encounter Start Date Encounter Closed Date Diagnosis/Indication Diagnosis SNOMED-CT Code [id number] Thony Dhaliwal MD [facility] [address] [place] [address] 07/23/2023 09:20:37 07/24/2023 17:00:40 Krishna hematuria [id number] MD YANIRA [facility] [address] [place] [id number] 08/13/2023 12:14:47 08/23/2023 16:05:56 Krishna hematuria [id number] Malignant neoplasm of urinary bladder [id number] MD [facility]ANIRA [facility] [address] [id number] 10/01/2023 10:20:28 10/09/2023 10:09:36 Malignant neoplasm of urinary bladder [id number] Health Concerns Section Related Observation LastModified by Organization Detai ls LastModified Time None Recorded Concern Status LastModified by Organization Details LastModified Time None Recorded Advance Directives Directive None Recorded Payers Encounter Date Sequence Insurance Name Policy Number Policy Lutz Covered Member ID Lutz Member ID Guarantor Name 07/23/2023 1 [employer] [id number] 1 Maxwell Redmond [id number] Maxwell Redmond 08/13/2023 1 [employer] [id number] 1 Maxwell Redmond [id number] Maxwell Redmond 10/01/2023 1 [employer] [id number] Maxwell Redmond [id number] Maxwell Redmond Notes Date Note Type Note [...] reports some type of body scan in [place] about a month ago. This was for back pain. Thony Dhaliwal MD [address] [facility],[address], [place], [address], [place] [facility] 07/23/2023 10:24:31 08/13/2023 text/html HPI Notes: bladd er mass detected on recent CT scan for hematuria. Thony Dhaliwal MD [address] [facility],[address], [place], [address], [facility] 08/13/2023 12:59:16 10/01/2023 text/html HPI Notes: f/u f or bladder cancer. Thony Dhaliwal MD [address] [facility],[address], [place], [address], [facility] 10/01/2023 11:25:23
--- OUTSIDE RECORDS SUMMARY | 2024-04-05 10:11 | XMS_ITS | Encounter Summary ---
Author Organization [place] Address [facility] [place] [address] Care Team Providers Care Pharmacy Services Representative Name Role Phone Manuel Hare Primary Care Provider [phone] Rohit Lechuga MD Unavailable Rohit Lechuga MD Unavailable [phone] Rohit Lechuga MD Unavailable [phone] Nelli Amaya APRN SENIOR STAFF CONSULTANT Unavailable [phone] Rg Collins MD Primary Care Provider [phone] Xavier Kwan MD Unavailable [phone] Encounter Details Date Type Department Care Team (Late st Contact Info) Description 11/10/2012 Office Visit-[facility] [address] [place] [address] Rohit Lechuga MD [address] [facility] [address] [place] [address] Social History Tobacco Use Types [...] . 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 He has two children. He has [...] surgery for failed PCI, and need for alf thienopyridine therapy should we implant a stent. [...] right radial artery, scheduled for 11/11/2012 at [facility]. We greatly appreciate the opportunity to care for your patient, Mr. Maxwell Redmond. Rohit Lechuga M.D. documented in this encounter Plan of Treatment Not on file documented as of this encounter Visit Diagnoses Not on filedocumented in this encounter Care Teams Pharmacy Services Representative Relationship Specialty Start Date End Date PayamManuel burden [address] [address] PCP - General 11/09/12 12/30/21 Rg Collins MD [address] [place] [address] PCP - General Family Medicine 12/31/21 Rohit Lechuga MD [address] [place] [address] Cardiology 03/26/18 Rohit Lechuga MD [address] [place] [address] Assigned Heart and Vascular Provider 06/08/20 10/06/20 Rohit Lechuga MD [address] [place] [address] Assigned Heart and Vascular Provider 05/12/21 12/07/21 Nelli Amaya APRN CNP [address] [place] [id number] Assigned Heart and Vascular Provider 12/08/21 01/04/22 Xavier Kwan MD [address] [facility] [address] [place] [address] Assigned Heart and Vascular Provider 01/05/22 05/01/23 documented as of this encounter
--- OUTSIDE RECORDS SUMMARY | 2024-04-05 10:11 | XMS_ITS | Clinical Summary ---
Author Organization [place] Address [facility] [place] [address] Care Team Providers Care Assistant Professor Of Radiology Name Role Phone Rohit Lechuga MD Unavailable Rg Collins MD Primary Care Provider [phone] Allergies No known active allergies Medications Medication [...] e triamcinolone (NASACORT) 55 MCG/ACT nasal aerosol [place] 2 sprays into both nostrils daily Active [...] Recently Relevant to Health Maintenance Care Teams Assistant Professor Of Radiology Relationship Specialty Start Date End Date Rg Collins MD [address] [place] [address] [place] [address] PCP - General Family Medicine 12/31/21 Rohit Lechuga MD [address] [place] [address] Cardiology 03/26/18
--- OUTSIDE RECORDS SUMMARY | 2024-04-05 10:11 | XMS_ITS | Clinical Summary ---
Author Organization [facility] Address [place], [place] [address] Care Team Providers Care Senior Underwriter Name Role Phone Rg Collins MD Primary Care Provider [phone] Allergies No known active allergies Medications Medication [...] Encounters Date Type Department Care Team Description 03/16/2024 Telephone [facility] [address] [place] [address] Dylan Graves MD Questions 02/23/2024 8:20 AM CDT Office Visit [facility] [address] [place] [address] Dylan Graves MD Procedure (L2-3 ILESI) 02/23/2024 Orders Only [facility] Scanner 1 scan: (1-Ord) [facility], L4-5 INTERLAMINAR EPIDURAL STEROID INJ UNDER FLUOROSCOPIC GUIDANCE, 02/23/2024 02/15/2024 Telephone [facility] [address] [place] [address] Dylan Graves MD Error-please disregard (ERROR) 02/12/2024 Telephone [facility] [address] [place] [address] Dylan Graves MD Results 02/11/2024 Telephone [facility] [address] [place] [address] Dylan Graves MD Questions 02/06/2024 10:08 AM CDT - 02/06/2024 11:59 PM CDT Hospital Encounter [address] [address] Dylan Graves MD Lumbar radiculopathy; Spinal stenosis, lumbar region, with neurogenic claudication; Lumbar facet arthropathy 02/06/2024 Travel 01/27/2024 Telephone [facility] [address] [place] [address] Dylan Graves MD Follow Up (regarding shots in back ) 01/05/2024 8:20 AM CDT Office Visit [facility] [address] [place] [address] Dylan Graves MD Procedure (Bilateral L5-S1 TFESI) from Last 3 Months Immunizations Name Administration [...] T Respiratory Rate 16 09/08/2023 2:05 PM DIRECTOR OF ROOMS Oxygen Saturation 97% 11/11/2023 3:23 PM CDT Inhaled Oxygen Concentration - - Weight 111.6 kg (246 lb) 09/08/2023 11:00 AM DIRECTOR OF ROOMS Height 172.7 cm (5' 8) 09/08/2023 11:00 AM DIRECTOR OF ROOMS Body Mass Index 37.4 09/08/2023 11:00 AM DIRECTOR OF ROOMS Plan of Treatment Upcoming Encounters Date Type Department Care Team (Late st Contact Info) Description 04/05/2024 11:00 AM CDT Office Visit [facility] [address] [place] [address] Dylan Graves MD [address] [place] [address] Arrived Health Maintenance Due Date Last Done Comments Depression screening for age 12+ 1954 BMI (ht and wt on same day) for age 18+ 1958 Medicare Wellness for age 65+ 2007 COVID-19 vaccine series (2022- season) 2023 05/06/2022, 11/13/2021, 05/13/2021, Additional history [...] Diagnosis Comments AMB EPIDURAL STEROID INJECTION Routine 04/05/2024 8:01 AM CDT Lumbar radiculopathy Spinal stenosis, lumbar region, with neurogenic claudication Lumbar facet arthropathy AMB EPIDURAL STEROID INJECTION Routine 02/23/2024 7:59 AM CDT Lumbar radiculopathy Spinal stenosis, lumbar region, with neurogenic claudication Lumbar facet arthropathy SCAN-OPERATIVE/PROC EDURE REPORT 02/23/2024 12:00 AM CDT MR SPINE LUMBAR WO Routine 02/06/2024 10 :38 AM CDT Lumbar radiculopathy Spinal stenosis, lumbar region, with neurogenic claudication Lumbar facet arthropathy AMB EPIDURAL STEROID INJECTION Routine 01/05/2024 12:00 AM CDT Lumbar radiculopathy Spinal stenosis, lumbar region, with neurogenic claudication Lumbar facet arthropathy from Last 3 Months Results * SCAN-OPERATIVE/PROCEDURE REPORT (02/23/2024 12:00 AM CDT) Scanner OTHER * MR SPINE LUMBAR WO (02/06/2024 10:38 [...] For Patients: ??As a result of the Century Cures Act, medical imaging exams and procedure [...] osseous lesions. Normal conus terminates at L1. [id number]: No spinal canal or neural foraminal narrowing. [...] For Patients: As a result of the Cures Act, medical imagingexams and procedure reports [...] osseous lesions. Normal conus terminates at L1. [id number]: No spinal canal or neural foraminal narrowing. [...] 6:28 AM 05/13/2012 12:33 PM Care Teams Senior Underwriter Relationship Specialty Start Date End Date Rg Collins MD [address] [address] PCP - General Family Practice 07/24/20
--- OUTSIDE RECORDS SUMMARY | 2024-04-05 10:11 | XMS_ITS | Encounter Summary ---
Author Organization [place] Address [facility] [address] Care Team Providers Care Honey Extractor Name Role Phone PayamManuel chávez Starr Primary Care Provider [phone] Rohit Lechuga MD Unavailable [phone] Rohit Lechuga MD Unavailable [phone] Rohit Lechuga MD Unavailable [phone] Nelli Amaya APRN COMPUTER OPERATOR Unavailable [phone] Rg Collins MD Primary Care Provider [phone] Xavier Kwan MD Unavailable [phone] Encounter Details Date Type Department Care Team (Late st Contact Info) Description 12/15/2012 Office Visit-[facility] [address] [place] [address] [place] [address] [place] [address] [address] [place] [address] Social History Tobacco Use Types [...] old Referring Physician: MANUEL HARE Referring Clinic: [facility] CURRENT DIAGNOSES 1. - CAD, 414.00 2. - Hyperlipidemia, 272.4 3. Obesity-(<LT>100'), 278.00 4. - Hypertension, 401.1 5. Sleep apnea, 786.09 ALLERGIES nitroglycerin MEDICATIONS (prior to changes made today) 1. aspirin, buffered 81 mg tablet, 1 p.o. twice daily 2. atorvastatin 20 mg tablet, 1 p.o. daily hs 3. fluticasone 50 mcg/actuation [place], Suspension, 1 [place] each nostril twice daily 4. 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 MEDICATIONS UPDATED/STARTED TODAY: fluticasone 50 mcg/actuation [place], Suspension, 1 [place] each nostril twice daily, #0 (Zero) metoprolol [...] on filedocumented in this encounter Care Teams Honey Extractor Relationship Specialty Start Date End Date Manuel Hare [address] [address] PCP - General 11/09/12 12/30/21 Rg Collins MD [address] [place] [address] PCP - General Family Medicine 12/31/21 Rohit Lechuga MD [address] [place] [address] Cardiology 03/26/18 Rohit Lechuga MD [address] [place] [address] Assigned Heart and Vascular Provider 06/08/20 10/06/20 Rohit Lechuga MD [address] [place] [address] Assigned Heart and Vascular Provider 05/12/21 12/07/21 Nelli Amaya APRN CNP [address] [place] [address] Assigned Heart and Vascular Provider 12/08/21 01/04/22 Xavier Kwan MD [address] [place] [address] [place] [address] Assigned Heart and Vascular Provider 01/05/22 05/01/23 documented as of this encounter
--- OUTSIDE RECORDS SUMMARY | 2024-04-05 10:11 | XMS_ITS | Encounter Summary ---
Author Organization [place] Address [facility]0 [facility] [place] [address] Care Team Providers Care Instructional Resource Teacher Name Role Phone PayamManuel chávez Starr Primary Care Provider [phone] Rohit Lechuga MD Unavailable [phone] Rohit Lechuga MD Unavailable [phone] Rohit Lechuga MD Unavailable [phone] Nelli Amaya APRN REHAB RN Unavailable [phone] Rg Collins MD Primary Care Provider [phone] Xavier Kwan MD Unavailable [phone] Encounter Details Date Type Department Care Team (Late st Contact Info) Description 04/28/2013 Office Visit-[facility] [address] [place] [address] [place] [address] [place] [address] [address] [place] [address] Social History Tobacco Use Types [...] Referring Physician: MANUEL HARE Referring Clinic: [facility] [place] CURRENT DIAGNOSES 1. - CAD, 414.00 2. - Hyperlipidemia, 272.4 3. Obesity-(<LT>100'), 278.00 4. - Hypertension, 401.1 5. Sleep apnea, 786.09 ALLERGIES nitroglycerin MEDICATIONS (prior to changes made today) 1. aspirin, buffered 81 mg tablet, 1 p.o. twice daily 2. atorvastatin 20 mg tablet, 1 p.o. daily hs 3. fluticasone 50 mcg/actuation [place], Suspension, 1 [place] each nostril twice daily 4. 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; Residence - lives in [place] year round; REVIEW OF SYSTEMS GENERAL feels [...] on filedocumented in this encounter Care Teams Instructional Resource Teacher Relationship Specialty Start Date End Date Manuel Hare [address] [address] PCP - General 11/09/12 12/30/21 Rg Collins MD [address] [place] [address] PCP - General Family Medicine 12/31/21 Rohit Lechuga MD [address] [place] [address] Cardiology 03/26/18 Rohit Lechuga MD [address] [place] [address] Assigned Heart and Vascular Provider 06/08/20 10/06/20 Rohit Lechuga MD [address] [place] [address] Assigned Heart and Vascular Provider 05/12/21 12/07/21 Nelli Amaya APRN CNP [address] [place] [address] Assigned Heart and Vascular Provider 12/08/21 01/04/22 Xavier Kwan MD [address] [place] [address] Assigned Heart and Vascular Provider 01/05/22 05/01/23 documented as of this encounter
--- OUTSIDE RECORDS SUMMARY | 2024-04-05 10:11 | XMS_ITS | Referral Summary ---
Author Organization [place] Address [facility] [place] [address] Care Team Providers Care Airport Shuttle Driver Name Role Phone Rohit Lechuga MD Unavailable [phone] Rg Collins MD Primary Care Provider [phone] Allergies No known active allergies Medications Medication [...] e triamcinolone (NASACORT) 55 MCG/ACT nasal aerosol [place] 2 sprays into both nostrils daily Active [...] Recently Relevant to Health Maintenance Care Teams Airport Shuttle Driver Relationship Specialty Start Date End Date Rg Collins MD [address] [place] [address] PCP - General Family Medicine 12/31/21 Rohit Lechuga MD [address] [place] [address] Cardiology 03/26/18
--- OUTSIDE RECORDS SUMMARY | 2024-04-05 10:11 | XMS_ITS | Encounter Summary ---
Author Organization [place] Address [facility]0 [facility] [place] [address] Care Team Providers Care Assembler Product Name Role Phone Manuel Hare Primary Care Provider [phone] Rohit Lechuga MD Unavailable [phone] Rohit Lechuga MD Unavailable [phone] Rohit Lechuga MD Unavailable [phone] Nelli Amaya APRN TAIL DOGGER Unavailable [phone] Rg Collins MD Primary Care Provider [phone] Xavier Kwan MD Unavailable [phone] Encounter Details Date Type Department Care Team (Late st Contact Info) Description 11/23/2012 Office Visit-[facility] [address] [place] [address] Yolie Young APRN TAIL DOGGER Social History Tobacco Use Types Packs/Day Years [...] Progress Note Created by: Yolie Young. N.P. 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 2. Hypertension, which was well controlled on [...] on filedocumented in this encounter Care Teams Assembler Product Relationship Specialty Start Date End Date Manuel Hare [place] [address] [facility] [address] PCP - General 11/09/12 12/30/21 Rg Collins MD [address] [place] [address] PCP - General Family Medicine 12/31/21 Rohit Lechuga MD [address] [place] [address] Cardiology 03/26/18 Rohit Lechuga MD [address] [place] [address] Assigned Heart and Vascular Provider 06/08/20 10/06/20 Rohit Lechuga MD [address] [place] [address] Assigned Heart and Vascular Provider 05/12/21 12/07/21 Nelli Amaya APRN CNP [address] [place] [address] Assigned Heart and Vascular Provider 12/08/21 01/04/22 Xavier Kwan MD [address] [place] [address] Assigned Heart and Vascular Provider 01/05/22 05/01/23 documented as of this encounter
== END 2024-04-05 10:09 | disposition home or self-care (01) ==
PROVIDERS: PCP Family Medicine; Visit Provider Family Medicine
DX: M54.16 Radiculopathy, lumbar region (principal); M48.062 Spinal stenosis, lumbar region with neurogenic claudication
CPT/HCPCS: 64483; J1100; Q9966

== ENCOUNTER 2024-06-09 15:32 | Outpatient (CLI) | payer OTHER, SELFPAY ==
--- OUTSIDE RECORDS SUMMARY | 2024-06-09 15:34 | XMS_ITS | Continuity of Care Document ---
Author Organization [facility] Address [address] [place] [address] Phone Care Team Providers Care Health Care Assistant Name Role Phone Melvin BERNAL, PhD, [place] [...] Copied on Encounter [facility], [address], [place], [id number], [place] tel:[phone] [facility] No Information 1 Melvin Schafer. [facility], [address], [place], [address], [place]. tel:[phone] Physician Telephone Evaluation 5-10 Min [facility], [address], [place], [place], [id number], [place] tel:[phone] [facility] No Information 1 Melvin Schafer. [facility], [address], [place], [address], [place]. tel:[phone] Referring Provider: Rg Hess, [facility] [address] [place], [address]. tel:[phone] Physician Telephone Evaluation 5-10 Min [facility], [address], [place], [id number], [place] tel:[phone] [facility] No Information 1 Melvin Schafer. [facility], [address], [place], [address], [place]. tel:[phone] Referring Provider: Rg Hess, [facility] [address] [place], [address]. tel:[phone] Office/Outpat ient Visit,Est, Mod [facility], [address], [place], [place], [id number], [place] tel:[phone] [facility] Spinal stenosis, lumbar region with neurogenic claudication 0 Melvin Schafer. [facility], [address], [place], [address], [place]. tel:[phone] Referring Provider: Rg Hess, [facility] [address] [place], [address]. tel:[phone] Office/Outpat ient Visit,New, Mod [facility], [address], [place], [id number], [place] tel:[phone] [facility] Spondylolisthe sis, lumbar regionOther spondylosis, lumbar region 0 Nick Louis. [facility], [address], [place], [place], [id number] , [place]. tel:[phone] Referring Provider: Rg Hess, [address], [address]. tel:[phone] Family History Family Member Type Diagnosis Age At Onset No Information Payers Payer name Insurance type Covered constitution party ID Authoriza tidavid(s) Aetna Medicare [facility] CI [id number] Social History Type Description Quantity Date Captured [...]
--- OUTSIDE RECORDS SUMMARY | 2024-06-09 15:34 | XMS_ITS | Encounter Summary ---
Author Organization [place] Address [facility] [place] [address] Care Team Providers Care Occupational Health And Safety Manager Name Role Phone Manuel Hare Primary Care Provider [phone] Rohit Lechuga MD Unavailable [phone] Rohit Lechuga MD Unavailable [phone] Rohit Lechuga MD Unavailable [phone] Nelli Amaya APRN MECHANIC FOREMAN Unavailable [phone] Rg Collins MD Primary Care Provider [phone] Xavier Kwan MD Unavailable [phone] Encounter Details Date Type Department Care Team (Late st Contact Info) Description 04/28/2013 Office Visit-[facility] [address] [place] [address] Rohit Lechuga MD [address] [facility] [address] [place] [address] Social History Tobacco Use Types Packs/Day Years Used Date Smoking Tobacco: Former Alcohol Use Standard Drinks/Week Comments Yes 0 (1 standard drink = 0.6 oz pur e alcohol) occasional Sex and Gender Information Value Date Recorded Sex Assigned at Not on file 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 - CAD, 414.00 2. - Hyperlipidemia, 272.4 3. Obesity-(<LT>100'), 278.00 4. - Hypertension, 401.1 5. Sleep apnea, 786.09 ALLERGIES nitroglycerin MEDICATIONS (prior to changes made today) 1. aspirin, buffered 81 mg tablet, 1 p.o. twice daily 2. atorvastatin 20 mg tablet, 1 p.o. daily hs 3. fluticasone 50 mcg/actuation [place], Suspension, 1 [place] each nostril twice daily 4. 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; Residence - lives in [place] year round; REVIEW OF SYSTEMS GENERAL feels [...] on filedocumented in this encounter Care Teams Occupational Health And Safety Manager Relationship Specialty Start Date End Date Manuel Hare [address] [id number] PCP - General 11/09/12 12/30/21 Rg Collins MD [facility] [place] [address] [place] [address] PCP - General Family Medicine 12/31/21 Rohit Lechuga MD [address] [place] [address] Cardiology 03/26/18 Rohit Lechuga MD [address] [place] [address] Assigned Heart and Vascular Provider 06/08/20 10/06/20 Rohit Lechuga MD [address] [place] [address] Assigned Heart and Vascular Provider 05/12/21 12/07/21 Nelli Amaya APRN CNP [address] [place] [address] Assigned Heart and Vascular Provider 12/08/21 01/04/22 Xavier Kwan MD [address] [place] [address] Assigned Heart and Vascular Provider 01/05/22 05/01/23 documented as of this encounter
--- OUTSIDE RECORDS SUMMARY | 2024-06-09 15:34 | XMS_ITS | Referral Summary ---
Author Organization [place] Address [facility], [address] [place] [address] Care Team Providers Care Ammunition Specialist Name Role Phone Rohit Lechuga MD Unavailable [phone] Rg Collins MD Primary Care Provider [phone] Allergies No known active allergies Medications OMEPRAZOLE PO Take 40 mg by mouth 2 times daily Active HYDROCHLOROTHIA ZIDE PO Take 25 mg by mouth daily. Active ATORVASTATIN CALCIUM PO Take 20 mg by mouth At Bedtime Active aspirin 81 MG EC tabletIndicatio ns:CAD (coronary artery disease) Take 1 tablet by mouth daily. Start tomorrow morning. 90 tablet 3 3 Active Additional Information Patient taking differently:81 mg Oral DAILY,(No instructions reported), Reported on 12/03/2021 metoprolol (TOPROL-XL) 25 MG 24 hr tablet Take 25 mg by mouth daily Active Coenzyme Q10 (COQ-10) 100 MG CAPS Take 100 mg by mouth daily Active Multiple Vitamins-Minera ls (CENTRUM SILVER ULTRA MENS PO) Take by mouth daily Active magnesium 250 MG tablet Take 1 tablet by mouth daily Active Calcium Carbonate-Vit D-Min (CALCIUM-VITAMI N D-MINERALS) 600-800 MG-UNIT CHEW Take by mouth daily Active triamcinolone (NASACORT) 55 MCG/ACT nasal aerosol [place] 2 sprays into both nostrils daily Active [...] Osteoarthritis 01/27/2014 CAD (coronary artery disease) 01/27/2014 Overview (01/27/2014): 10/2012-PTCA and overlapping ENRRIQUE in the mid [...] on file Legal Sex Male 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 Gender Identity Not on file Sexual Orientation [...] Associated Diagnosis Comments LIPID PROFILE Routine 02/01/2019 BASIC METABOLIC PANEL Routine 02/01/2019 from Last 3 Months or Most Recently Relevant to Health Maintenance Results * Lipid Profile (02/01/2019) Cholesterol 179 90 - 200 mg/dL EXTERNAL LAB Triglycerides 138 40 - 197 mg/dL EXTERNAL LAB HDL Cholesterol 58 mg/dL EXTERNAL LAB LDL Cholesterol Calculated 93 <100 mg/dL EXTERNAL LAB Non HDL Cholesterol mg/dl EXTERNAL LAB Blood specimen (specimen) 02/01/2019 us Patient Reported LAB - BLOOD ORDERABLES Final Re sult EXTERNAL LAB External Lab * Basic metabolic panel (02/01/2019) Sodium mmol/L EXTERNAL LAB Potassium mmol/L EXTERNAL LAB Chloride mmol/L EXTERNAL LAB Carbon Dioxide mmol/L EXTERNAL LAB Anion Gap mmol/L EXTERNAL LAB Glucose 70 - 99 mg/dL EXTERNAL LAB Urea Nitrogen mg/dL EXTERNAL LAB Creatinine mg/dL EXTERNAL LAB Calcium mg/dL EXTERNAL LAB GFR Estimate ml/min/1.7 3m2 EXTERNAL LAB GFR Estimate If Black ml/min/1.7 3m2 EXTERNAL LAB Blood specimen (specimen) 02/01/2019 us Patient Reported LAB - BLOOD ORDERABLES Final Re sult EXTERNAL LAB External Lab from Last 3 Months or Most Recently Relevant to Health Maintenance Insurance [id number] MEDICARE ADVANTAGE Care Teams Ammunition Specialist Relationship Specialty Start Date End Date Rg Collins MD [facility] [address] [place] [address] PCP - General Family Medicine 12/31/21 Rohit Lechuga MD [address] [place] [address] Cardiology 03/26/18
--- OUTSIDE RECORDS SUMMARY | 2024-06-09 15:34 | XMS_ITS | Encounter Summary ---
Author Organization [place] Address [facility] [place] [address] Care Team Providers Care Clinical Data Assistant Name Role Phone Manuel Hare Primary Care Provider [phone] Rohit Lechuga MD Unavailable [phone] Rohit Lechuga MD Unavailable [phone] Rohit Lechuga MD Unavailable [phone] Nelli Amaya APRN WHISTLE PUNK Unavailable [phone] Rg Collins MD Primary Care Provider [phone] Xavier Kwan MD Unavailable [phone] Encounter Details Date Type Department Care Team (Late st Contact Info) Description 11/10/2012 Office Visit-[facility] [address] [place] [address] Rohit Lechuga MD [address] [facility] [address] [place] [address] Social History Tobacco Use Types Packs/Day Years Used Date Smoking Tobacco: Never Assessed Sex and Gender Information Value Date Recorded Sex Assigned at Not on file 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 He has two children. He has [...] surgery for failed PCI, and need for usp thienopyridine therapy should we implant a stent. [...] right radial artery, scheduled for 11/11/2012 at [facility]. We greatly appreciate the opportunity to care for your patient, Mr. Maxwell Redmond. Rohit Lechuga M.D. documented in this encounter Plan of Treatment Not on file documented as of this encounter Visit Diagnoses Not on filedocumented in this encounter Care Teams Clinical Data Assistant Relationship Specialty Start Date End Date Manuel Hare [address] [address] PCP - General 11/09/12 12/30/21 Rg Collins MD [address] [address] PCP - General Family Medicine 12/31/21 Rohit Lechuga MD [address] [place] [id number] Cardiology 03/26/18 Rohit Lechuga MD [address] [place] [address] Assigned Heart and Vascular Provider 06/08/20 10/06/20 Rohit Lechuga MD [address] [place] [address] Assigned Heart and Vascular Provider 05/12/21 12/07/21 Nelli Amaya APRN CNP [address] [place] [address] Assigned Heart and Vascular Provider 12/08/21 01/04/22 Xavier Kwan MD [address] [facility] [address] [place] [address] Assigned Heart and Vascular Provider 01/05/22 05/01/23 documented as of this encounter
--- OUTSIDE RECORDS SUMMARY | 2024-06-09 15:34 | XMS_ITS | Encounter Summary ---
Author Organization [place] Address [facility] [place] [address] Care Team Providers Care Conference Services Manager Name Role Phone PayamManuel chávez Primary Care Provider + [phone] Rohit Lechuga MD Unavailable [phone] Rohit Lechuga MD Unavailable [phone] Rohit Lechuga MD Unavailable [phone] Nelli Amaya APRN DIRECTOR VIDEO Unavailable [phone] Rg Collins MD Primary Care Provider [phone] Xavier Kwan MD Unavailable [phone] Encounter Details Date Type Department Care Team (Late st Contact Info) Description 12/15/2012 Office Visit-[facility] [address] [place] [address] [place] [address] [place] [address] [address] [place] [address] Social History Tobacco Use Types Packs/Day Years Used Date Smoking Tobacco: Former Alcohol Use Standard Drinks/Week Comments Yes 0 (1 standard drink = 0.6 oz pur e alcohol) occasional Sex and Gender Information Value Date Recorded Sex Assigned at Not on file Legal Sex Male 3:32 AM 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 daily hs 3. fluticasone 50 mcg/actuation [place], Suspension, 1 [place] each nostril twice daily 4. 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 MEDICATIONS UPDATED/STARTED TODAY: fluticasone 50 mcg/actuation [place], Suspension, 1 [place] each nostril twice daily, #0 (Zero) metoprolol [...] on filedocumented in this encounter Care Teams Conference Services Manager Relationship Specialty Start Date End Date Manuel Hare [address] [address] PCP - General 11/09/12 12/30/21 Rg Collins MD [facility] [address] [place] [address] PCP - General Family Medicine 12/31/21 Rohit Lechuga MD [address] [place] [address] Cardiology 03/26/18 Rohit Lechuga MD [address] [place] [address] Assigned Heart and Vascular Provider 06/08/20 10/06/20 Rohit Lechuga MD [address] [place] [address] Assigned Heart and Vascular Provider 05/12/21 12/07/21 Nelli Amaya APRN DIRECTOR VIDEO [address] [place] [address] Assigned Heart and Vascular Provider 12/08/21 01/04/22 Xavier Kwan MD [address] [place] [address] Assigned Heart and Vascular Provider 01/05/22 05/01/23 documented as of this encounter
--- OUTSIDE RECORDS SUMMARY | 2024-06-09 15:34 | XMS_ITS | Clinical Summary ---
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 Gender Identity Not on file Sexual [...] 1940 ANNUAL REVIEW OF HM ORDERS 1940 FALL RISK ASSESSMENT 2007 MEDICARE ANNUAL WELLNESS VISIT 2007 RSV VACCINE (1 - 1-dose 75+ series) 2017 BMP 02/02/2020 02/01/2019, 01/15, 12/14/2017, Additional history exists LIPID 02/02/2020 02/01/2019, 11/17, 04/19/2014 PHQ-2 (once per calendar year) 2023 COVID-19 Vaccine ( season) 2024 11/13/2021, 05/13/2021, 11/06/2020, Additional history exists INFLUENZA VACCINE (#1) 2024 , 06/21/2020, 05/18/2020, [...] Most Recently Relevant to Health Maintenance Insurance [employer] REPLACED BY [facility] MEDICARE ADVANTAGE Care Teams Review Consultant Relationship Specialty Start Date End Date Rg Collins MD [facility] [address] [place] [address] PCP - General Family Medicine 12/31/21 Rohit Lechuga MD [address] [place] [address] Cardiology 03/26/18
--- OUTSIDE RECORDS SUMMARY | 2024-06-09 15:34 | XMS_ITS | Encounter Summary ---
Author Organization [place] Address [facility]0 [facility] [place] [address] Care Team Providers Care Enrober Tender Name Role Phone Manuel Hare Primary Care Provider + [phone] Rohit Lechuga MD Unavailable [phone] Rohit Lechuga MD Unavailable [phone] Rohit Lechuga MD Unavailable [phone] Nelli Amaya APRN ANALYST MARKET INTELLIGENCE Unavailable [phone] Rg Collins MD Primary Care Provider [phone] Xavier Kwan MD Unavailable [phone] Encounter Details Date Type Department Care Team (Late st Contact Info) Description 11/23/2012 Office Visit-[facility] [address] [place] [address] Yolie Young APRN ANALYST MARKET INTELLIGENCE Social History Tobacco Use Types Packs/Day Years Used Date Smoking Tobacco: Former Alcohol Use Standard Drinks/Week Comments Yes 0 (1 standard drink = 0.6 oz pur e alcohol) occasional Sex and Gender Information Value Date Recorded Sex Assigned at Not on file 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 N.P. 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 2. Hypertension, which was well controlled on [...] on filedocumented in this encounter Care Teams Enrober Tender Relationship Specialty Start Date End Date Manuel Hare [facility] [address] [place] [id number] PCP - General 11/09/12 12/30/21 Rg Collins MD [facility] [address] [place] [address] PCP - General Family Medicine 12/31/21 Rohit Lechuga MD [address] [place] [address] Cardiology 03/26/18 Rohit Lechuga MD [address] [place] [address] Assigned Heart and Vascular Provider 06/08/20 10/06/20 Rohit Lechuga MD [address] [place] [address] Assigned Heart and Vascular Provider 05/12/21 12/07/21 Nelli Amaya APRN CNP [address] [place] [address] Assigned Heart and Vascular Provider 12/08/21 01/04/22 Xavier Kwan MD [address] [place] [address] Assigned Heart and Vascular Provider 01/05/22 05/01/23 documented as of this encounter
--- OUTSIDE RECORDS SUMMARY | 2024-06-09 15:35 | XMS_ITS | Clinical Summary ---
Author Organization [facility] Address [place], [place] [address] Care Team Providers Care Tool Grinder Name Role Phone Rg Collins MD Primary Care Provider [phone] Allergies No known active allergies Medications Medication Sig Dispensed Refills Start Date End Date Status omeprazole (PRILOSEC) 20 mg capsule Take 20 mg by mouth once daily before a meal. Pt states does not take Active hydrochlorothiazide (HCTZ) 25 mg tablet Take 25 mg [...] 250 mg by mouth once daily. Active HYDROcodone-acetami nophen (5-325 mg/tablet)Indicatio ns:Bladder mass Take 1 Tablet by mouth every 6 hours if needed for Pain. Max acetaminophen dose: 4000 mg in 24 hrs. 12 Tablet 09/08/2023 Active traMADoL (ULTRAM) 50 mg tabletIndications:S ruddy stenosis, lumbar region, with neurogenic claudication Take 1 Tablet (50 mg) by mouth 3 times daily if needed for Pain. 24 Tablet 1 05/23/2024 Active Active Problems No known active problems Encounters Date Type Department Care Team Description 05/17/2024 Telephone [facility] [address] [place] [id number] Dylan Graves MD Questions (INJECTION / BACK ) 04/05/2024 11:00 AM CDT Office Visit [facility] [address] [facility] [id number] Dylan Graves MD Procedure (Bilateral L3-4 TFESI) 04/05/2024 Telephone [facility] Centralized Nurse Triage Pcp, No Follow Up (Incidental findings 02/05) 03/16/2024 Telephone [facility] [address] [place] [address] Dylan Graves MD Questions from Last 3 Months Immunizations Name Administration [...] = 0.6 oz pur e alcohol) socially Financial Resource Strain Answer Date R ecorded [...] T Respiratory Rate 16 09/08/2023 2:05 PM INSTRUMENT LENS INSPECTOR Oxygen Saturation 97% 11/11/2023 3:23 PM CDT Inhaled Oxygen Concentration - - Weight 111.6 kg (246 lb) 09/08/2023 11:00 AM INSTRUMENT LENS INSPECTOR Height 172.7 cm (5' 8) 09/08/2023 11:00 AM INSTRUMENT LENS INSPECTOR Body Mass Index 37.4 09/08/2023 11:00 AM INSTRUMENT LENS INSPECTOR Plan of Treatment Health Maintenance Due Date Last Done Comments Depression screening for age 12+ 1954 BMI (ht and wt on same day) for age 18+ 1960 Medicare Wellness for age 65+ 2007 RSV vaccine for adults or (1 - 1-dose 75+ series) 2017 COVID-19 vaccine series ( season) 2024 05/06/2022, 11/13/2021, 05/13/2021, Additional history exists Influenza [...] Comments AMB EPIDURAL STEROID INJECTION Routine 04/05/2024 12:00 AM CDT Lumbar radiculopathy Spinal stenosis, lumbar region, with neurogenic claudication Lumbar facet arthropathy from Last 3 Months Results * AMB EPIDURAL STEROID INJECTION (04/05/2024 12:00 AM CDT) Dylan Graves MD NEUROLOGY ORD from Last 3 Months Advance Directives * Full Code (Latest Code Status on File) Date Activated Date Inactivated Comments 09/08/2023 8:50 AM 09/08/2023 6:23 PM Question Answer Comments Code Status Discussion: Unable to Assess Preferences, Provider to review later * Full Code Date Activated Date Inactivated Comments 05/13/2012 6:28 AM 05/13/2012 12:33 PM Care Teams Tool Grinder Relationship Specialty Start Date End Date Rg Collins MD [address] [place] [address] PCP - General Family Practice 07/24/20
== END 2024-06-09 15:33 | disposition home or self-care (01) ==
LOC: LKVREF 15:32
PROVIDERS: PCP Family Medicine; Visit Provider Family Medicine
DX: Z00.00 Encounter for general adult medical examination without abnormal findings (principal); D64.9 Anemia, unspecified; I10 Essential (primary) hypertension; E78.5 Hyperlipidemia, unspecified; E66.9 Obesity, unspecified; G89.29 Other chronic pain; M17.12 Unilateral primary osteoarthritis, left knee; Z12.5 Encounter for screening for malignant neoplasm of prostate
CPT/HCPCS: 80053; 80061; 82607; G0103

== ENCOUNTER 2024-08-30 09:20 | Outpatient (CLI) | payer OTHER, SELFPAY | END 2024-08-30 09:21 | disposition home or self-care (01) | LOC: INJ CL 09:21 | PROVIDERS: PCP Family Medicine; Visit Provider Family Medicine | DX: M54.16 Radiculopathy, lumbar region (principal); M51.369 Other intervertebral disc degeneration, lumbar region without mention of lumbar back pain or lower extremity pain; M48.062 Spinal stenosis, lumbar region with neurogenic claudication | CPT/HCPCS: 64483; J1100; Q9966 ==

== ENCOUNTER 2024-09-01 10:01 | Outpatient (CLI) | payer OTHER, SELFPAY ==
--- NOTE | 2024-09-01 10:15 | CRLHL7_ITS ---
For Patients: As a result of the Century Cures Act, medical imaging exams and procedure reports are released immediately into your electronic medical record. You may view this report before your referring provider. If you have questions, please contact your health care provider. INDICATION: Neck pain. COMPARISON: 07/20/2020. TECHNIQUE: Sagittal T1, T2, and STIR sequences. Axial T2/gradient sequences. FINDINGS: Degenerative grade 1 anterolisthesis of C4 on C5 measures approximately 3 mm. Otherwise, normal facet alignment. No fractures. No vertebral body loss of height. No ligamentous injury. No suspicious osseous lesions. Normal cord signal. No intradural mass or lesion. C1-2: No spinal canal narrowing. C2-3: No spinal canal neural foraminal narrowing. C3-4: Progressive disc degeneration and posterior disc bulging disc osteophyte complex. Mild narrowing of spinal canal. Moderate narrowing of bilateral foramina. C4-5: Grade 1 anterolisthesis. Disc degeneration. Posterior disc bulge. Mild narrowing of spinal canal. Mild narrowing of bilateral foramina. C5-6: Stable disc degeneration broad-based disc osteophyte complex. Mild narrowing of spinal canal. Mild right and moderate left neural foraminal narrowing. C6-7: Disc generation broad-based disc osteophyte complex. Mild narrowing of spinal canal. Moderate narrowing of the bilateral foramina. C7-T1: No spinal canal or neural foraminal narrowing. IMPRESSION: 1. Degenerative grade 1 anterolisthesis of C4 on C5. Otherwise normal alignment. No fractures 2. Normal cord signal. 3. At C3-4, mild narrowing of the spinal canal. Moderate narrowing of the bilateral neural foramina 4. At C4-5, mild narrowing of the spinal canal and bilateral neural foramina 5. At C5-6, mild narrowing of the spinal canal. Mild right and moderate left neural foraminal narrowing. 6. At C6-7, moderate narrowing of the bilateral neural foramina Dictated by Rubio Schneider MD @ 09/01/2024 2:25:01 PM (Electronically Signed)
== END 2024-09-01 10:02 | disposition home or self-care (01) ==
LOC: MRI 10:02
PROVIDERS: PCP Family Medicine; Visit Provider Family Medicine
DX: M54.2 Cervicalgia (principal); M50.21 Other cervical disc displacement, high cervical region; M50.221 Other cervical disc displacement at C4-C5 level; M50.222 Other cervical disc displacement at C5-C6 level; M50.223 Other cervical disc displacement at C6-C7 level
CPT/HCPCS: 72141

== ENCOUNTER 2024-09-13 11:00 | Outpatient (RCR) | payer MEDICARE, SELFPAY ==
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
--- NOTE | 2024-08-08 16:14 | PT.OPDN ---
PT [place] [facility] Daily Note PT [facility] Daily Note Start: 11/24/23 13:56 Freq: Status: Active Protocol: Document 08/08/24 12:58 LSL (Rec: 08/08/24 13:52 LSL [id number]) E-signed By Flory Lee, PT PT OP Daily Progress Note Visit Information Note Type Daily Note Visit Number 12 Running Total Visit Number 45 Insurance Information Recert Due Date 09/11/24 Insurance Information/Comments advantage - [employer] Medical Diagnosis Spinal stenosis lumbar region without neurogenic claudication M48.061 Intervertebral disc degeneration lumbar region M51 .36 Unilateral primary osteoarthritis, left knee M17. 12 Cervicalgia M54.2 Treating Diagnosis cervicalgia M54.2 G89.29 chronic pain lumbago M54.50 abnormal gait R26.89 Referring MD Rg Collins/Taylor Bond Subjective Subjective Pt. reports everything is about the same. Got a low back appointment at the end of the month with Dr. Bond. Pain Comments R knee pain during weighted lateral step ups today. 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 Heart) Z96.651 - Presence of right artificial knee joint (ICD-10) Anemia (Acute) D64.9 - Anemia, unspecified ( ICD-10) Osteoarthritis of left knee ( Acute) Severe M17.12 - Unilateral primary osteoarthritis, left knee (ICD -10) Tubular adenoma of colon ( Acute) D12.6 - Benign neoplasm of colon, unspecified (ICD-10) Temporomandibular joint disorder (Acute) M26.609 - Unspecified temporomandibular joint disorder, unspecified side ( ICD-10) Supraventricular tachycardia ( Acute) Paroxysmal supraventricular tachycardia (Acute) I47.1 - Supraventricular tachycardia (ICD-10) Osteoarthritis (Acute 07/18/10 ) M19.90 - Unspecified osteoarthritis, unspecified site (ICD-10) Obstructive sleep apnea treated with continuous positive airway pressure (CPAP ) (Acute) G47.33 - Obstructive sleep apnea (adult) (pediatric) (ICD -10) Obesity (Acute 03/06/09) BMI 38.3 E66.9 - Obesity, unspecified (ICD-10) Neck pain (Acute) M54.2 - Cervicalgia (ICD-10) Macrocytosis without anemia ( Acute) D75.89 - Other specified diseases of blood and blood- forming organs (ICD-10) Low back pain (Acute 08/08/08) M54.50 - Low back pain, unspecified (ICD-10) Hypertension (Acute 08/08/08) I10 - Essential (primary) hypertension (ICD-10) Frequent ventricular premature beats (Acute) I49.3 - Ventricular premature depolarization (ICD-10) Coronary artery disease (Acute 11/09/12) I25.10 - Atherosclerotic heart disease of [place] coronary artery without angina pectoris (ICD-10) 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/02/13) H59.819 - Chorioretinal scars after surgery for detachment, unspecified eye (ICD-10) Benign paroxysmal positional vertigo (Acute) H81.10 - Benign paroxysmal vertigo, unspecified ear (ICD- 10) Back pain (Acute) M54.9 - Dorsalgia, unspecified (ICD-10 ) Seasonal allergies (Acute) J30 .2 - Other seasonal allergic rhinitis (ICD-10) Home Exercise Home Exercise Comments all w TA: SLR hip abduction sidelying prone hip extension lauren hip flexor stretch calf stretch at wall HS stretch foot on chair seated w strap sit/ stand standing rows, chin tucks, SB and pec stretches shoulder hor abd RTB shoulder ER YTB/RTB Objective Other/Pertinent Objective Oswestry Disability Index Score Summary Patient ID: No name entered Date Completed:08/08/2024 Section 1: Pain Intensity The pain is moderate at the moment (2 points) Section 2: Personal Care ( Washing, Dressing, etc.) I do not have to change the way I wash and dress myself to avoid pain. (0 points) Section 3: Lifting Pain prevents me from lifting heavy weights, but I can manage light to medium weights if they are conveniently positioned (3 points) Section 4: Walking Pain prevents me from walking long distances (2 points) Section 5: Sitting Pain prevents me from sitting more than one hour (2 points) Section 6: Standing Pain prevents me from standing for more than 60 minutes (2 points) Section 7: Sleeping Because of pain I have less than 6 hours of sleep (2 points) Section 8: Sex life (if applicable) N/A Section 9: Social life P Oswestry Disability Index Score Summary Patient ID: No name entered Date Completed:05/10/2024 Section 1: Pain Intensity The pain is moderate at the moment (2 points) Section 2: Personal Care ( Washing, Dressing, etc.) It is painful to look after myself but I am slow and careful (2 points) Section 3: Lifting Pain prevents me from lifting heavy weights, but I can manage light to medium weights if they are conveniently positioned (3 points) Section 4: Walking I can only walk using a stick or crutches (4 points) Section 5: Sitting Pain prevents me from sitting more than one hour (2 points) Section 6: Standing Pain prevents me from standing for more than 30 minutes (3 points) Section 7: Sleeping Because of pain I have less than 6 hours of sleep (2 points) Section 8: Sex life (if applicable) My sex life is normal and causes no extra pain (0 points) Section 9: Social life My social life is normal but it increases my pain (2 points) Section 10: Travelling Pain restricts me to journeys of less than one hour (3 points) Employment/Homemaking I can perfomr most of my duties but pain prevents me from performing more physically or stressful activities. (2 points) Oswestry Disability Index Score Oswestry Disability Index Score: 16 points or 32 percent. AROM - lumbar flexion, B LF WNL, extension 70% PROM - B SKC 60%, DKC not assessed, SLB - L 2 sec, R 4 sec, tandem R 12 sec, L 2 sec STRENGTH - LE B HS and quads 5 /5, trunk upper abdominals 2+/ 5, lower abdominals 2-/5, L hip abduction , R hip abduction 3/5, hip extension R 4/5, L 3+/5 Patient Instructed in Risks/Benefits Yes Therapeutic Exercise Therapeutic Exercise Minutes (minutes) 43 Therapeutic Exercise: To Restore - Nustep S10 UE/LE x 10 min (3 Functional Status ' HIIT) with measurements for PN HELD BELOW: - sit to stand 25# 2x10 - lumbar extension 60# 10x, 80 # 10x, 90# 10x - CC lat pull 24# 10x, 29# 10x , 34# 10x - CC row 24# 10x, 29# 10x, 32. 5# 10x - seated trunk flexion extension 25# 2x10 - standing B tricep press 19# 2x10 - seated chair lumbar rotation and SB motion 3x 10 sec each - 6 lateral step up 10# 2x10 ea - heel raises 15# 2x10, SL R 2x7, L 2x7 - plinth assisted leg straight sit up 10x - standing pallof press 7.5# 2x10 B - seated ball squeeze crunch isometric 10x, 5x - hor abd RTB x10 (home) - ER RTB B 10x (home) Treatment Minutes Timed Code Treatment Minutes 43 Total Treatment Time 43 Billing Units Therapeutic Exercise Units 3 Assessment/Impression Assessment/Impression Patient has a noted improvement in lumbar ROM and functional strength with weakness in MMT remaining, along with a 16% improvement in his OWESTRY score. This has not changed his knee or back pain from when this therapist took over his care. He is noting improvements in sleep and walking, however his balance remains poor and this increases his fall risk. He is returning to the doctor next week for follow up and he may be a patient that would benefit from a maintenance program at 1x/week for 1-2 months and then weaning to every other week before discharge to continue independently once he completes his move. Plan of Care Physical Therapy Goals STG meet 2-3 weeks has capacity to, but occasionally chooses not to1) Patient will demonstrate I HEP and self care/home mgmt techniques for pain management, core stability and ROM. sleep on side for naps, CPAP at nightl 2 ) Pt report pain < 2-3/10 with activity and provocative positions rolling over in bed, standing up, getting out of car etc. LTG meet 4-8 weeks 1) Pt demo ability to lift 10- 15# for home and self care without increased pain using most appropriate applicable body mechanics (MET) 2) Pt report pain not interrupting sleep more than 2x/ week without use of medication. (MET) 3) Pt will demo 500' ambulation without limp and with best mechanics and balance to decrease risk of fall with community ambulation for things such as grocery shopping, participation in fitness activities. (no limp with SPC however gait is slow and cautious and tends to land flat footed) 4) Pt will demo ability to return to walking, balance and functional strengthening for management of falls risk, weight/ cardiovascular risk factors to maximize independence and longevity. ( doing well in controlled setting) Daily Plan of Care Change POC; See Comments Daily Plan of Care Comments follow up with MD 08/15/24 Recertification Information Initial Certification Date 06/14/24 Recertification Start Date 08/09/24 Recertification Due Date 11/04/24 Reasons to Continue Skilled Therapy fall risk, impaired gait, core weakness Rehabilitation Potential Fair to poor Continued Plan of Care and Interventions strengthening and balance program Provider Signature Shows Agreement With POC & Medical Necessity Physician Comment/Change Comment or Changes Physician NPI Number #
== END 2024-11-22 12:14 | disposition home or self-care (01) ==
PROVIDERS: PCP Family Medicine; Visit Provider Family Medicine
DX: M48.061 Spinal stenosis, lumbar region without neurogenic claudication (principal); M48.062 Spinal stenosis, lumbar region with neurogenic claudication; M17.12 Unilateral primary osteoarthritis, left knee; M54.2 Cervicalgia; G89.29 Other chronic pain; R42 Dizziness and giddiness; M54.50 Low back pain, unspecified; R26.9 Unspecified abnormalities of gait and mobility; Z51.89 Encounter for other specified aftercare
CPT/HCPCS: 97110; 97112; 97116; 97140; 97162

== ENCOUNTER 2025-04-19 14:15 | Outpatient (CLI) | payer OTHER, SELFPAY ==
--- NOTE | 2025-04-19 15:00 | CRLHL7_ITS ---
For Patients: As a result of the Century Cures Act, medical imaging exams and procedure reports are released immediately into your electronic medical record. You may view this report before your referring provider. If you have questions, please contact your health care provider. Indication: Leg pain Comparison: Technique: Routine duplex arterial examination of bilateral lower extremities including 2D and spectral analysis, and color Doppler imaging was performed. Findings: In the right lower extremity there are multiphasic waveforms in the common femoral artery, profunda femoral artery, superficial femoral artery, and popliteal artery. Similarly, at the ankle, there are multiphasic waveforms in the posterior tibial artery, and dorsalis pedis arteries. Mildly elevated velocity in the distal femoral artery measures 156 cm/second. In the left lower extremity there are multiphasic waveforms within the common femoral artery, profunda femoral artery, superficial femoral artery, and popliteal artery. Similarly, at the ankle, there are multiphasic waveforms in the posterior tibial artery, and dorsalis pedis arteries. No elevated velocities. Impression: Multiphasic waveforms of bilateral lower extremities. Mildly elevated velocity in the distal right femoral artery corresponding to a 30-49 percent stenosis. Dictated by Maxwell Gil MD @ 04/20/2025 6:38:44 AM (Electronically Signed)
== END 2025-04-19 14:16 | disposition home or self-care (01) ==
LOC: US 14:16
PROVIDERS: PCP Family Medicine; Visit Provider Family Medicine
DX: M79.606 Pain in leg, unspecified (principal); I70.201 Unspecified atherosclerosis of native arteries of extremities, right leg
CPT/HCPCS: 93926

== ENCOUNTER 2025-06-06 10:32 | Outpatient (CLI) | payer OTHER, SELFPAY | END 2025-06-06 10:33 | disposition home or self-care (01) | LOC: INJ CL 10:32 | PROVIDERS: PCP Family Medicine; Visit Provider Family Medicine | DX: M54.16 Radiculopathy, lumbar region (principal); M51.369 Other intervertebral disc degeneration, lumbar region without mention of lumbar back pain or lower extremity pain | CPT/HCPCS: 64483; J1100; Q9966 ==

== ENCOUNTER 2025-06-29 09:49 | Outpatient (CLI) | payer OTHER, SELFPAY | END 2025-06-29 09:50 | disposition home or self-care (01) | LOC: NFLDREF 07-04 22:01 | PROVIDERS: PCP Family Medicine; Referring Provider Family Medicine; Visit Provider Family Medicine | DX: Z00.00 Encounter for general adult medical examination without abnormal findings (principal); I10 Essential (primary) hypertension; E78.5 Hyperlipidemia, unspecified | CPT/HCPCS: 80053; 80061; G0103 ==